=== PATIENT | female | born 1990 | race Caucasian/White ===

== ENCOUNTER 2016-06-10 10:22 | Emergency (ER) | payer MEDICAID ==
[2016-06-10] MEDS ORDERED: KETOROLAC 60 MG/2 ML VIAL IVP STA (11:44)
[2016-06-10] MEDS ORDERED: KETOROLAC 30 MG/ML VIAL ONE (11:48)
[2016-06-10] MEDS ORDERED: IOPAMIDOL-300 100 ML VIAL IVP ONE (14:19)
[2016-06-10] MEDS ORDERED: oxyCOD/ACETAMIN 5 MG/325 MG TABLET PO STA (14:26)
[2016-06-10] MEDS ORDERED: oxyCOD/ACETAMIN 5 MG/325 MG TABLET PO ONE (14:30)
== END 2016-06-10 15:04 | disposition home or self-care (01) ==
DX: R07.9 Chest pain, unspecified (principal); F17.200 Nicotine dependence, unspecified, uncomplicated; Z82.49 Family history of ischemic heart disease and other diseases of the circulatory system
CPT/HCPCS: 36415; 71020; 71275; 80053; 83690; 84484; 84703; 85025; 85379; 93005; 93010; 96374; 99283; 99284; A9270; Q9967

== ENCOUNTER 2016-07-12 15:23 | Emergency (ER) | payer MEDICAID ==
[2016-07-12] MEDS ORDERED: ONDANSETRON 4 MG/2 ML VIAL IVP STA (16:22)
[2016-07-12] MEDS ORDERED: SODIUM CHLORIDE 0.9% 1,000 ML IV ONE (16:22)
[2016-07-12] MEDS ORDERED: MECLIZINE 12.5 MG TABLET PO STA (16:23)
[2016-07-12] MEDS ORDERED: ONDANSETRON 4 MG/2 ML VIAL ONE (16:27)
[2016-07-12] MEDS ORDERED: MECLIZINE 12.5 MG TABLET PO ONE ×2 (16:27→16:37)
[2016-07-12] MEDS ORDERED: IBUPROFEN 800 MG TABLET PO ONE (16:37)
[2016-07-12] MEDS ORDERED: diphenhydrAMINE 25 MG CAPSULE PO STA (17:29)
[2016-07-12] MEDS ORDERED: PROCHLORPERAZINE 10 MG/2 ML VIAL IVP STA (17:30)
[2016-07-12] MEDS ORDERED: diphenhydrAMINE 25 MG CAPSULE PO ONE (17:46)
[2016-07-12] MEDS ORDERED: PROCHLORPERAZINE 10 MG/2 ML VIAL ONE (17:46)
== END 2016-07-12 18:22 | disposition home or self-care (01) ==
DX: R55 Syncope and collapse (principal); R42 Dizziness and giddiness; F17.200 Nicotine dependence, unspecified, uncomplicated
CPT/HCPCS: 36415; 70450; 80053; 81003; 83690; 85025; 93005; 93010; 96361; 96374; 96375; 99283; 99284; A9270

== ENCOUNTER 2016-08-16 21:04 | Emergency (ER) | payer MEDICAID ==
[2016-08-16] MEDS ORDERED: SODIUM CHLORIDE 0.9% 1,000 ML IV ONE (21:12)
== END 2016-08-16 23:04 | disposition home or self-care (01) ==
DX: F41.9 Anxiety disorder, unspecified (principal); R00.0 Tachycardia, unspecified; F17.200 Nicotine dependence, unspecified, uncomplicated

== ENCOUNTER 2016-08-22 14:45 | Outpatient (CLI) | payer MEDICAID | END 2016-08-22 15:00 | disposition home or self-care (01) | DX: R00.2 Palpitations (principal) ==

== ENCOUNTER 2016-09-01 17:10 | Emergency (ER) | payer MEDICAID ==
[2016-09-01] MEDS ORDERED: ASPIRIN CHEW 81 MG TABLET PO STA (17:52)
[2016-09-01] MEDS ORDERED: SODIUM CHLORIDE 0.9% 1,000 ML IV ONE (18:21)
[2016-09-01] MEDS ORDERED: IPRATROPIUM/ALBUTEROL 3 ML NEB INH STA (18:22)
[2016-09-01] MEDS ORDERED: IPRATROPIUM/ALBUTEROL 3 ML NEB INH ONE (18:26)
[2016-09-01] MEDS ORDERED: cefTRIAXone 1 GM in SODIUM CHLORIDE 0.9% MINIBAG 100 ML IV STA (18:44)
[2016-09-01] MEDS ORDERED: cefTRIAXone 1 GM VIAL ONE (18:50)
[2016-09-01] MEDS ORDERED: POTASSIUM BICARB 25 MEQ TABLET PO STA (18:56)
[2016-09-01] MEDS ORDERED: MAGNESIUM OXIDE 400 MG TABLET PO ONE ×2 (18:56→19:09)
[2016-09-01] MEDS ORDERED: POTASSIUM BICARB 25 MEQ TABLET PO ONE (19:09)
[2016-09-01] MEDS ORDERED: IOPAMIDOL-300 100 ML VIAL IVP ONE (19:20)
== END 2016-09-01 21:25 | disposition home or self-care (01) ==
DX: R07.89 Other chest pain (principal); R06.02 Shortness of breath; N30.00 Acute cystitis without hematuria; R00.0 Tachycardia, unspecified; R03.0 Elevated blood-pressure reading, without diagnosis of hypertension; E87.6 Hypokalemia; F17.200 Nicotine dependence, unspecified, uncomplicated; Z82.49 Family history of ischemic heart disease and other diseases of the circulatory system
CPT/HCPCS: 36415; 71020; 71275; 80053; 81001; 81025; 83690; 84484; 85025; 93005; 93010; 94640; 96361; 96365; 99284; A9270; J7620; Q9967

== ENCOUNTER 2016-11-13 09:15 | Emergency (ER) | payer MEDICAID ==
[2016-11-13 10:00] LABS: BILIRUBIN,URINE NEGATIVE (NEGATIVE)
[2016-11-13 10:08] LABS: HCG UR QUAL NEGATIVE; UA CHARGE (STRIP ONLY) YES; UR CULTURE IF IND NOT INDICATED
[2016-11-13 10:10] LABS: BASOPHILS # (AUTO) 0.1 10^3/uL (0.0-0.1); BASOPHILS % (AUTO) 0.7 %; EOSINOPHILS # (AUTO) 0.4 10^3/uL (0.0-0.7); HCT - HEMATOCRIT 42.1 % (37.0-47.0); HGB - HEMOGLOBIN 14.3 g/dL (12.0-16.0); LYMPHOCYTES # (AUTO) 2.6 10^3/uL (1.5-3.5); LYMPHOCYTES % (AUTO) 25.8 %; MEAN CORPUSCULAR HEMOGLOBIN 29.7 pg (27.0-31.0); MEAN CORPUSCULAR HGB CONC 33.9 g/dL (32.0-36.0); MEAN CORPUSCULAR VOLUME 87.6 fL (81.0-99.0); MEAN PLATELET VOLUME 8.2 fL (7.9-10.8); MONOCYTES # (AUTO) 0.6 10^3/uL (0.0-1.0); MONOCYTES % (AUTO) 5.6 %; NEUTROPHILS # (AUTO) 6.5 10^3/uL (1.5-6.6); NEUTROPHILS % (AUTO) 63.9 %; NUCLEATED RED BLOOD CELLS AUTO 0.1 /100WBC; RED BLOOD COUNT 4.81 10^6/uL (4.20-5.40); RED CELL DISTRIBUTION WIDTH 13.3 % (12.0-15.0); UNCORRECTED WHITE BLOOD COUNT 10.1 x10^3/uL; WHITE BLOOD COUNT 10.1 x10^3/uL (4.8-10.8)
[2016-11-13 10:21] LABS: ALBUMIN/GLOBULIN RATIO 1.3 (1.0-2.2); BILIRUBIN,TOTAL 0.5 mg/dL (0.2-1.0); CALCIUM 9.4 mg/dL (8.5-10.3); CREATININE 0.6 mg/dL (0.4-1.0); POTASSIUM 3.8 mmol/L (3.5-5.0); TOTAL PROTEIN 7.7 g/dL (6.7-8.2)
--- NOTE | 2016-11-13 10:26 | XRAY Preliminary Report ---
Exam: XR Chest 2 View PA/LAT IMPRESSION: Normal 2-view chest radiography. [facility] SITE ID: [id number]
--- NOTE | 2016-11-13 10:29 | XRAY Report ---
EXAM: CHEST RADIOGRAPHY EXAM DATE: 11/13/2016 10:11 AM. CLINICAL HISTORY: Syncope, palpitations. COMPARISON: 09/01/2016. TECHNIQUE: 2 views. FINDINGS: Lungs/Pleura: No focal opacities evident. No pleural effusion. No pneumothorax. Normal volumes. Mediastinum: Heart and mediastinal contours are unremarkable. Other: None. IMPRESSION: Normal 2-view chest radiography. [facility] Referring Provider Line: [phone] SITE ID: [id number]
--- NOTE | 2016-11-13 10:41 | ED Physician Documentation ---
PD HPI SYNCOPE - Stated complaint Stated Complaint: SYNCOPE/HEAD PX/VOMITING - Chief complaint Chief Complaint: Cardiac - History obtained from History obtained from: Patient - History of Present Illness Witnessed: Unwitnessed Timing - onset: Today Duration: Seconds Preceding symptoms: Palpitations, Light headed Associated symptoms: Palpitations, Diaphoresis Contributing factors: Other (jsut out of the shower) Injury occurred: Head injury. No: Neck injury, Bit tongue Similar symptoms before: Diagnosis (syncope) Recently seen: Not recently seen - Additional information Additional information: 25 y/o female with a history of tobacco abuse and prior syncopal episodes has had another episode of syncope after getting out of the shower. She notes nothing was different this morning from her usual and she felt the palpitations in her chest. She describes the palpitations as a missed beat with a thud following that and brief in nature. She is symptom free now. Review of Systems Constitutional: denies: Fever, Chills, Myalgias, Fatigue Eyes: denies: Decreased vision Ears: denies: Ear pain Nose: denies: Congestion Throat: denies: Sore throat Cardiac: reports: Chest pain / pressure, Palpitations. denies: Pedal edema, Calf pain Respiratory: denies: Dyspnea, Cough GI: reports: Nausea. 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 : None HEENT: Chronic vision loss Psych: None Musculoskeletal: None Derm: None - Past Surgical History Past Surgical History: Yes General: Other - Allergies Allergies/Adverse Reactions: Allergies Allergy/AdvReac Type Severity Reaction Status Date / Time chlorhexidine Allergy Hives Verified 11/13/16 09:22 - Social History Does the pt smoke?: Yes Smoking Status: Current every day smoker Does the pt drink ETOH?: Yes Does the pt have substance abuse?: No - Immunizations Immunizations are current?: Yes - POLST Patient has POLST: No PD ED PE NORMAL - Vitals Vital signs reviewed: Yes (hypertensive) - General General: Alert and oriented X 3, No acute distress, Well developed/nourished - HEENT HEENT: Atraumatic, PERRL, EOMI, Ears normal, Moist mucous membranes, Pharynx benign, Dentition benign - Neck Neck: Supple, no meningeal sign, No bony TTP - Cardiac Cardiac: RRR, No murmur - Respiratory Respiratory: No respiratory distress, Clear bilaterally - Abdomen Abdomen: Soft, Non tender - Back Back: No CVA TTP, No spinal TTP - Derm Derm: Normal color, No rash - Extremities Extremities: No deformity, No edema - Neuro Neuro: Alert and oriented X 3, deck specialist 2-12 intact, No motor deficit, No sensory deficit, Normal speech - Psych Psych: Normal mood, Normal affect Results - Vitals Vitals: Vital Signs - 24 hr 11/13/16 11/13/16 11/13/16 09:20 11:31 12:45 Temperature 37.1 C 36.7 C Heart Rate 100 80 79 Respiratory 18 20 17 Rate Blood Pressure 132/73 H 107/57 L 108/49 L O2 Saturation 100 97 100 11/13/16 12:48 Temperature 36.5 C Heart Rate 72 Respiratory 22 Rate Blood Pressure 115/75 O2 Saturation 100 Oxygen O2 Source Room air - EKG (time done) 0926 Rate: Rate (enter#) (88) Rhythm: NSR Compare to prior EKG: Changed from prior EKG (SPT 09-01-16 rate has decreased) Computer interpretation: Agree with computer - Labs Labs: Laboratory Tests 11/13/16 11/13/16 11/13/16 09:38 09:38 09:38 WBC 10.1 RBC 4.81 Hgb 14.3 Hct 42.1 MCV 87.6 MCH 29.7 MCHC 33.9 RDW 13.3 Plt Count 357 MPV 8.2 Neut # 6.5 Lymph # 2.6 [place] # 0.6 Eos # 0.4 Baso # 0.1 Absolute Nucleated RBC 0.01 Nucleated RBCs 0.1 D-Dimer Sodium 137 Potassium 3.8 Chloride 101 Carbon Dioxide 28 Anion Gap 8.0 BUN 12 Creatinine 0.6 Estimated GFR (MDRD) 121 Glucose 89 Calcium 9.4 Total Bilirubin 0.5 AST 15 ALT 16 Alkaline Phosphatase 83 Troponin I < 0.04 Total Protein 7.7 Albumin 4.3 Globulin 3.4 Albumin/Globulin Ratio 1.3 Lipase 27 TSH Urine Color Urine Clarity Urine pH Ur Specific [place] Urine Protein Urine Glucose (UA) Urine Ketones Urine Occult Blood Urine Nitrite Urine Bilirubin Urine Urobilinogen Ur Leukocyte Esterase Ur Microscopic Review Urine Culture Comments Urine HCG, Qual 11/13/16 11/13/16 11/13/16 09:38 09:38 09:47 WBC RBC Hgb Hct MCV MCH MCHC RDW Plt Count MPV Neut # Lymph # [place] # Eos # Baso # Absolute Nucleated RBC Nucleated RBCs D-Dimer < 200.0 L Sodium Potassium Chloride Carbon Dioxide Anion Gap BUN Creatinine Estimated GFR (MDRD) Glucose Calcium Total Bilirubin AST ALT Alkaline Phosphatase Troponin I Total Protein Albumin Globulin Albumin/Globulin Ratio Lipase TSH 0.86 Urine Color YELLOW Urine Clarity CLEAR Urine pH 7.0 Ur Specific [place] 1.020 Urine Protein NEGATIVE Urine Glucose (UA) NEGATIVE Urine Ketones NEGATIVE Urine Occult Blood TRACE-INTA Urine Nitrite NEGATIVE Urine Bilirubin NEGATIVE Urine Urobilinogen 0.2 (NORMAL) Ur Leukocyte Esterase NEGATIVE Ur Microscopic Review NOT INDICATED Urine Culture Comments NOT INDICATED Urine HCG, Qual 11/13/16 09:47 WBC RBC Hgb Hct MCV MCH MCHC RDW Plt Count MPV Neut # Lymph # [place] # Eos # Baso # Absolute Nucleated RBC Nucleated RBCs D-Dimer Sodium Potassium Chloride Carbon Dioxide Anion Gap BUN Creatinine Estimated GFR (MDRD) Glucose Calcium Total Bilirubin AST ALT Alkaline Phosphatase Troponin I Total Protein Albumin Globulin Albumin/Globulin Ratio Lipase TSH Urine Color Urine Clarity Urine pH Ur Specific [place] 1.020 Urine Protein Urine Glucose (UA) Urine Ketones Urine Occult Blood Urine Nitrite Urine Bilirubin Urine Urobilinogen Ur Leukocyte Esterase Ur Microscopic Review Urine Culture Comments Urine HCG, Qual NEGATIVE - Rads (name of study) 2 view chest Radiology: Prelim report reviewed (Impression: Normal two-view chest radiography.), EMP read indepedently, See rad report PD MEDICAL DECISION MAKING - ED course Complexity details: reviewed old records, reviewed results, re-evaluated patient , considered differential, d/w patient ED course: 25 y/o female with another syncopal episode without explanation. She has "palpitations" associated with this and no findings on monitoring or in work up today. Her IVC was checked and she appeared euvolemic. 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 Departure - Departure Disposition: 01 Home, Self Care Clinical Impression: Syncope Qualifiers: Syncope type: unspecified Qualified Code(s): R55 - Syncope and collapse Condition: Stable Instructions: ED Fainting Unkn Cause Follow-Up: [facility] - Card [Provider Group] Comments: Today we did not find a reason for your fainting episode. It is imperative that you follow up with your lime sludge kiln operator for monitoring. Today in the Emergency Department your blood pressure was elevated. This can happen from the stress of the visit itself, from a current illness or circumstance or from uncontrolled hypertension. If you take blood pressure medications take your usual mediations, have your blood pressure re-checked in an appropriate setting and follow up any elevation with your primary care doctor. Forms: Activity restrictions Discharge Date/Time: 11/13/16 12:48
[2016-11-13 12:53] VITALS: BP 115/75
== END 2016-11-13 12:48 | disposition home or self-care (01) ==
LOC: ED 09:15
DX: R55 Syncope and collapse (principal); R25.1 Tremor, unspecified; J45.909 Unspecified asthma, uncomplicated; F17.200 Nicotine dependence, unspecified, uncomplicated
CPT/HCPCS: 36415; 71020; 80053; 81001; 81003; 81025; 83690; 84443; 84484; 85025; 85379; 87086; 93005; 93010; 99283; 99284

== ENCOUNTER 2017-03-11 14:24 | Emergency (ER) | payer MEDICAID ==
[2017-03-11 14:48] VITALS: BP 129/81
--- NOTE | 2017-03-11 15:39 | XRAY Preliminary Report ---
Exam: XR Chest 2 View PA/LAT IMPRESSION: Normal 2-view chest radiography. [facility] SITE ID: [id number]
--- NOTE | 2017-03-11 15:46 | XRAY Report ---
EXAM: CHEST RADIOGRAPHY EXAM DATE: 03/11/2017 03:11 PM. CLINICAL HISTORY: Current smoker. Nonproductive cough for 2 weeks. COMPARISON: 11/13/2016. TECHNIQUE: 2 views. FINDINGS: Lungs/Pleura: No focal opacities evident. No pleural effusion. No pneumothorax. Normal volumes. Mediastinum: Heart and mediastinal contours are unremarkable. Other: None. IMPRESSION: Normal 2-view chest radiography. [facility] Referring Provider Line: [phone] SITE ID: [id number]
--- NOTE | 2017-03-11 16:02 | ED Physician Documentation ---
PD HPI URI - Stated complaint Stated Complaint: SOA - Chief complaint Chief Complaint: Resp - History obtained from History obtained from: Patient - History of Present Illness Timing - onset: How many weeks ago (2) Timing duration: Weeks (2) Timing details: Gradual onset, Still present Associated symptoms: Productive cough, Chest pain (with coughing), Dyspnea. No : Fever Contributing factors: COPD / asthma. No: Sick contact, Travel, Immunocompromised Improves by: MDI/nebulizer Worsened by: Activity Similar symptoms before: Diagnosis (bronchtitis and asthma, has had pneumonia in the past) Recently seen: Not recently seen Review of Systems Constitutional: reports: Chills, Myalgias. denies: Fever Nose: reports: Congestion Throat: denies: Sore throat Cardiac: reports: Chest pain / pressure (with cough). denies: Palpitations Respiratory: reports: Dyspnea, Cough, Wheezing GI: reports: Diarrhea. 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 : None HEENT: Chronic vision loss Psych: None Musculoskeletal: None Derm: None - Past Surgical History Past Surgical History: Yes General: Other - Present Medications Home Medications: Ambulatory Orders Medication Instructions Recorded Confirmed Albuterol Sulf [Ventolin Hfa 1 - 2 puffs INH Q4HR PRN #1 inhaler 03/11/17 Inhaler] Benzonatate [Tessalon] 100 mg PO TID PRN #25 capsule 03/11/17 Dexamethasone [Decadron] 4 mg PO DAILY #5 tablet 03/11/17 Doxycycline Hyclate 100 mg PO BID #14 tablet 03/11/17 guaiFENesin/CODEINE [Robitussin AC] 10 ml PO Q6H PRN #240 ml 03/11/17 - Allergies Allergies/Adverse Reactions: Allergies Allergy/AdvReac Type Severity Reaction Status Date / Time chlorhexidine Allergy Hives Verified 11/13/16 09:22 - Social History Does the pt smoke?: Yes Smoking Status: Current every day smoker Does the pt drink ETOH?: Yes Does the pt have substance abuse?: No - Immunizations Immunizations are current?: Yes - POLST Patient has POLST: No PD ED PE NORMAL - Vitals Vital signs reviewed: Yes - General General: Alert and oriented X 3, Well developed/nourished, Other (appears uncomfortable and hurting with cough. Has harsh, loud cough repetitively. ) - HEENT HEENT: Ears normal, Pharynx benign - Neck Neck: Supple, no meningeal sign, No adenopathy - Cardiac Cardiac: RRR, No murmur - Respiratory Respiratory: Clear bilaterally - Abdomen Abdomen: Soft, Non tender - Derm Derm: Normal color, Warm and dry, No rash - Extremities Extremities: No edema, No calf tenderness / cord Results - Vitals Vitals: Oxygen O2 Source Room air - Rads (name of study) chest Radiology: Prelim report reviewed, EMP read contemporaneously (no pneumonia nor PTX) PD MEDICAL DECISION MAKING - ED course Complexity details: reviewed results, considered differential (prolonged cough and now productive with harsh sound and hurting chest with cough. ), d/w patient Departure - Departure Disposition: 01 Home, Self Care Clinical Impression: Upper respiratory infection Qualifiers: URI type: unspecified URI Qualified Code(s): J06.9 - Acute upper respiratory infection, unspecified Condition: Stable Record reviewed to determine appropriate education?: Yes Instructions: ED Upper Resp Infec Abx Tx Prescriptions: Albuterol Sulf [Ventolin Hfa Inhaler] 1 - 2 puffs INH Q4HR PRN #1 inhaler PRN Reason: Shortness Of Air/Wheezing Benzonatate [Tessalon] 100 mg PO TID PRN #25 capsule PRN Reason: Cough Dexamethasone [Decadron] 4 mg PO DAILY #5 tablet Doxycycline Hyclate 100 mg PO BID #14 tablet guaiFENesin/CODEINE [Robitussin AC] 10 ml PO Q6H PRN #240 ml PRN Reason: Cough Comments: Drink lots of fluids. Use the albuterol inhaler 2 puffs 4 times a day for 7-10 days. Decadron steroid for inflammation daily for 5 more days. Cough medicine as needed. Use Tessalon as needed for cough as well. This may still be viral and irritated but given the duration of it and her symptoms, there is concern for bacterial and so we will add doxycycline twice a day for a week. Recheck if not improving over the next 3-5 days. Discharge Date/Time: 03/11/17 17:06
[2017-03-11] MEDS ORDERED: BENZONATATE 100 MG CAPSULE PO STA (16:24)
[2017-03-11] MEDS ORDERED: ALBUTEROL NEB 2.5 MG/3 ML INH STA (16:24)
[2017-03-11] MEDS ORDERED: DEXAMETHASONE 10 MG/ML VIAL PO STA (16:24)
[2017-03-11] MEDS ORDERED: guaiFENesin/CODEINE 5 ML UDC PO STA (16:24)
[2017-03-11] MEDS ORDERED: ALBUTEROL NEB 2.5 MG/3 ML INH ONE (16:41)
[2017-03-11] MEDS ORDERED: guaiFENesin/CODEINE 5 ML UDC ONE ×2 (16:50→22:10)
[2017-03-11] MEDS ORDERED: DEXAMETHASONE 10 MG/ML VIAL ONE (16:50)
[2017-03-11] MEDS ORDERED: BENZONATATE 100 MG CAPSULE PO ONE (16:50)
[2017-03-11] MEDS ORDERED: CHERRY SYRUP 10 ML UDC PO ONE (16:50)
[2017-03-11] MEDS ORDERED: ONDANSETRON 4 MG/2 ML VIAL ONE (22:10)
== END 2017-03-11 17:06 | disposition home or self-care (01) ==
LOC: ED 14:24
DX: J06.9 Acute upper respiratory infection, unspecified (principal); J45.909 Unspecified asthma, uncomplicated; F17.200 Nicotine dependence, unspecified, uncomplicated
CPT/HCPCS: 71020; 99283; A9270; J7613

== ENCOUNTER 2017-08-29 16:00 | Outpatient (CLI) | payer MEDICAID | END 2017-08-29 16:01 | disposition home or self-care (01) | LOC: LAB.R 16:00 | PROVIDERS: ATTEND Obstetrics & Gynecology | DX: R10.2 Pelvic and perineal pain (principal); Z11.3 Encounter for screening for infections with a predominantly sexual mode of transmission | CPT/HCPCS: 87491; 87591 ==

== ENCOUNTER 2017-09-03 11:51 | Outpatient (CLI) | payer MEDICAID ==
[2017-09-03 12:03] LABS: BASOPHILS # (AUTO) 0.1 10^3/uL (0.0-0.1); BASOPHILS % (AUTO) 0.9 %; EOSINOPHILS # (AUTO) 0.6 10^3/uL (0.0-0.7); EOSINOPHILS % (AUTO) 4.4 %; HGB - HEMOGLOBIN 13.6 g/dL (12.0-16.0); LYMPHOCYTES # (AUTO) 3.3 10^3/uL (1.5-3.5); LYMPHOCYTES % (AUTO) 24.4 %; MEAN CORPUSCULAR HEMOGLOBIN 30.9 pg (27.0-31.0); MEAN CORPUSCULAR HGB CONC 34.9 g/dL (32.0-36.0); MEAN CORPUSCULAR VOLUME 88.5 fL (81.0-99.0); MEAN PLATELET VOLUME 7.9 fL (7.9-10.8); MONOCYTES # (AUTO) 0.8 10^3/uL (0.0-1.0); NEUTROPHILS # (AUTO) 8.7 10^3/uL (1.5-6.6); NEUTROPHILS % (AUTO) 64.3 %; PLT - PLATELET COUNT 325 10^3/uL (130-450); RED BLOOD COUNT 4.41 10^6/uL (4.20-5.40); RED CELL DISTRIBUTION WIDTH 13.3 % (12.0-15.0); WHITE BLOOD COUNT 13.5 x10^3/uL (4.8-10.8)
[2017-09-03 12:36] LABS: HB2 TOTAL 14.6 g/dL; HEMOGLOBIN A1C 0.46 g/dL
== END 2017-09-03 11:52 | disposition home or self-care (01) ==
LOC: LAB 11:51
PROVIDERS: ATTEND Obstetrics & Gynecology
DX: R10.2 Pelvic and perineal pain (principal); E66.9 Obesity, unspecified
CPT/HCPCS: 36415; 83036; 85025; 85651

== ENCOUNTER 2017-09-09 20:01 | Outpatient (CLI) | payer MEDICAID ==
--- NOTE | 2017-09-10 09:18 | Ultrasound Report ---
PELVIC ULTRASOUND: 09/09/2017 HISTORY: Last menstrual period 08/30/2017. COMPARISON: Pelvic ultrasound 09/07/2015. TECHNIQUE: Transabdominal pelvic ultrasound performed for global evaluation. Real-time scanning performed and static images obtained. FINDINGS: UTERUS: Normal echotexture, anteverted configuration, 8.5 x 3.8 x 5 cm, volume 85 mL. Endometrial echo thickness 6 mm. IUD normally positioned within the endometrial canal. RIGHT OVARY: 2.3 x 2.3 x 2.9 cm, volume 7.9 mL. Normal echotexture and blood flow. LEFT OVARY: 2.3 x 2 x 2.3 cm, volume 5.5 mL. A 2.5 x 1.7 x 1.9 cm cystic structure adjacent to the left ovary, question paraovarian cyst. Otherwise normal left ovary echotexture and blood flow. FREE FLUID: None. IMPRESSION: 1. NORMAL ENDOMETRIAL ECHO THICKNESS WITH NORMALLY POSITIONED IUD. 2. SMALL LEFT PARAOVARIAN CYST. 3. OTHERWISE NEGATIVE. TD: 09/10/2017 09:17 [email or web address]
== END 2017-09-09 20:02 | disposition home or self-care (01) ==
LOC: DI 20:01
PROVIDERS: ATTEND Obstetrics & Gynecology
DX: R10.2 Pelvic and perineal pain (principal); N94.89 Other specified conditions associated with female genital organs and menstrual cycle; Z97.5 Presence of (intrauterine) contraceptive device
CPT/HCPCS: 76830; 76856

== ENCOUNTER 2017-09-24 08:00 | Outpatient (CLI) | payer MEDICAID ==
[2017-09-24 15:56] LABS: BILIRUBIN,URINE NEGATIVE (NEGATIVE); GLUCOSE, URINE (UA) NEGATIVE (NEGATIVE); KETONES,URINE (UA) NEGATIVE (NEGATIVE); LEUKOCYTE ESTERASE, URINE NEGATIVE (NEGATIVE); NITRITE,URINE NEGATIVE (NEGATIVE); OCCULT BLOOD,URINE NEGATIVE (NEGATIVE); PH,URINE 6.5 PH (5.0-7.5); PROTEIN,URINE NEGATIVE (NEGATIVE); UROBILINOGEN,URINE 0.2 (NORMAL) E.U./dL (NORMAL)
[2017-09-24 16:11] LABS: BACTERIA,URINE None Seen /HPF (None Seen); CLARITY,URINE CLEAR (CLEAR); RBC,URINE None Seen /HPF (0-5); SQUAMOUS EPITHELIAL CELL,UR FEW Squamous (<= Few)
== END 2017-09-24 08:01 ==
LOC: LAB.R 08:00
PROVIDERS: ATTEND Obstetrics & Gynecology
DX: R35.0 Frequency of micturition (principal)
CPT/HCPCS: 81001

== ENCOUNTER 2017-09-25 13:57 | Outpatient (CLI) | payer MEDICAID ==
--- NOTE | 2017-09-25 14:52 | Ultrasound Report ---
LEFT BREAST ULTRASOUND: 09/25/2017 CLINICAL INDICATION: 1 cm palpable abnormality lateral left breast on clinical exam. TECHNIQUE: Real-time scanning was performed with airline security representative static images obtained. FINDINGS: Ultrasound of the outer left breast was performed, directed to the region indicated on the requisition. Unremarkable parenchymal lobules are seen. No discrete solid or cystic mass is identified. No sonographically suspicious findings are seen. IMPRESSION: NEGATIVE EXAMINATION. RECOMMENDATION: Continued clinical surveillance. Routine annual screening, to commence at age 40, unless otherwise clinically indicated. BIRADS CATEGORY 1-NEGATIVE. TD: 09/25/2017 14:52
== END 2017-09-25 13:58 | disposition home or self-care (01) ==
LOC: DI 13:57
PROVIDERS: ATTEND Obstetrics & Gynecology
DX: N60.92 Unspecified benign mammary dysplasia of left breast (principal)
CPT/HCPCS: 76642

== ENCOUNTER 2017-10-09 18:12 | Outpatient (CLI) | payer MEDICAID ==
[~2017-10-09 18:12] MED LIST: IOPAMIDOL-300 100 ML VIAL ONE; IOPAMIDOL-300 50 ML VIAL ONE
[2017-10-09] MEDS ORDERED: IOPAMIDOL-300 100 ML VIAL ONE (18:24)
[2017-10-09] MEDS ORDERED: IOPAMIDOL-300 50 ML VIAL ONE (18:24)
--- NOTE | 2017-10-10 09:43 | CT Report ---
CT ABDOMEN AND PELVIS WITH CONTRAST: 10/09/2017 CLINICAL INDICATION: Left groin pain. TECHNIQUE: Axial CT images of the abdomen and pelvis were obtained with 100 mL Isovue 300 intravenously as well as oral contrast. COMPARISON: 02/05/2016. FINDINGS: Limited evaluation of the lung bases is unremarkable. ABDOMEN: The liver, spleen, pancreas, kidneys and adrenal glands are unremarkable. The gallbladder is not dilated. No bowel dilatation, free gas, or free fluid is present. No abdominal adenopathy is seen. PELVIS: The appendix is seen in the right lower quadrant, and is normal in caliber. An IUD is noted in the uterus. Incidental ovarian follicles are noted. No pelvic adenopathy or free fluid is present. No inguinal adenopathy is seen. Osseous structures are unremarkable. IMPRESSION: NORMAL CT OF THE ABDOMEN AND PELVIS. IUD IN PLACE. NO EVIDENT ETIOLOGY FOR PATIENT'S LEFT GROIN PAIN. CT DOSE REDUCTION STATEMENT In accordance with CT protocol optimization, one or more of the following dose reduction techniques were utilized for this exam: automated exposure control, adjustment of mA and/or KV based on patient size, or use of iterative reconstructive technique. TD: 10/10/2017 09:43
== END 2017-10-09 18:13 | disposition home or self-care (01) ==
LOC: DI 18:12
PROVIDERS: ATTEND Internal Medicine Gastroenterology
DX: R10.32 Left lower quadrant pain (principal); Z97.5 Presence of (intrauterine) contraceptive device
CPT/HCPCS: 74177; Q9967

== ENCOUNTER 2018-08-08 15:44 | Outpatient (CLI) | payer MEDICAID ==
--- NOTE | 2018-08-10 00:01 | XRAY Report ---
Reason: THUMB PAIN, LEFT Procedure Date: 08/08/2018 Accession Number: [id number] / [id number] Procedure: XR - Hand 3 View LT CPT Code: FULL RESULT: EXAM: LEFT HAND RADIOGRAPHY EXAM DATE: 08/08/2018 04:25 PM. CLINICAL HISTORY: THUMB PAIN, LEFT. COMPARISON: WRIST 3 VIEW LT 10/01/2014 11:09 AM. TECHNIQUE: 3 views. FINDINGS: Bones: No acute fractures or suspicious bone lesions. Joints: No subluxations. Soft Tissues: Unremarkable. IMPRESSION: No acute radiographic abnormalities. [facility]
== END 2018-08-08 15:45 | disposition home or self-care (01) ==
LOC: DI 15:44
PROVIDERS: ATTEND Family Medicine
DX: M79.645 Pain in left finger(s) (principal)

== ENCOUNTER 2019-04-10 15:15 | Outpatient (CLI) | payer MEDICAID | END 2019-04-10 15:16 | disposition short-term general hospital (02) | LOC: EMS 15:15 | PROVIDERS: ATTEND Surgery | DX: M54.9 Dorsalgia, unspecified (principal); V43.53XA Car driver injured in collision with pick-up truck in traffic accident, initial encounter; Y92.413 State road as the place of occurrence of the external cause ==

== ENCOUNTER 2019-08-20 10:40 | Emergency (ER) | payer MEDICAID ==
[2019-08-20] MEDS ORDERED: ALBUTEROL NEB 2.5 MG/3 ML INH STA ×2 (11:00→11:01)
[2019-08-20] MEDS ORDERED: BENZONATATE 100 MG CAPSULE PO STA (11:01)
[2019-08-20] MEDS ORDERED: guaiFENesin/CODEINE 5 ML UDC PO STA (11:01)
--- NOTE | 2019-08-20 11:40 | ED Physician Documentation ---
PD HPI URI - Stated complaint Stated Complaint: COUGH,FEVER - Chief complaint Chief Complaint: Resp - History obtained from History obtained from: Patient (Productive cough for 2 weeks, fever at the outset then went away and then has recurred over the last few days. Mostly a sebastian-colored sputum but a little bit of hemoptysis over the last day or so. She is short of breath. She is a smoker. 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 HEENT: Chronic vision loss Psych: None Musculoskeletal: None Derm: None - Past Surgical History Past Surgical History: Yes General: Other - Present Medications Home Medications: Ambulatory Orders Medication Instructions Recorded Confirmed Albuterol Sulf [Ventolin Hfa 1 - 2 puffs INH Q4HR PRN #1 inhaler 03/11/17 Inhaler] Benzonatate [Tessalon] 100 mg PO TID PRN #25 capsule 03/11/17 Doxycycline Hyclate 100 mg PO BID #14 tablet 03/11/17 dexAMETHasone [Decadron] 4 mg PO DAILY #5 tablet 03/11/17 guaiFENesin/CODEINE [Robitussin AC] 10 ml PO Q6H PRN #240 ml 03/11/17 Azithromycin [Zithromax] 1 tab PO DAILY #6 tablet 08/20/19 Benzonatate [Tessalon [place]] 100 - 200 mg PO TID PRN #30 capsule 08/20/19 guaiFENesin/CODEINE [Robitussin AC] 5 - 10 ml PO Q6H PRN #120 ml 08/20/19 - Allergies Allergies/Adverse Reactions: Allergies Allergy/AdvReac Type Severity Reaction Status Date / Time chlorhexidine Allergy Hives Verified 08/20/19 10:50 - Social History Does the pt smoke?: Yes Smoking Status: Current every day smoker Does the pt drink ETOH?: Yes Does the pt have substance abuse?: No - Immunizations Immunizations are current?: Yes - POLST Patient has POLST: No PD ED PE NORMAL - Vitals Vital signs reviewed: Yes - General General: Alert and oriented X 3, No acute distress, Other (Frequent bronchitic coughing) - HEENT HEENT: PERRL, EOMI - Neck Neck: Supple, no meningeal sign, No bony TTP - Cardiac Cardiac: RRR, No murmur - Respiratory Respiratory: No respiratory distress, Other (Diminished throughout without focal findings) - Abdomen Abdomen: Non tender - Back Back: No spinal TTP - Derm Derm: No rash - Extremities Extremities: No edema, No calf tenderness / cord - Neuro Neuro: Alert and oriented X 3, Normal speech Results - Vitals Vitals: Vital Signs - 24 hr 08/20/19 08/20/19 08/20/19 10:46 11:19 11:46 Temperature 36 C L 36 C L Heart Rate 104 H 104 H 98 Respiratory 20 22 16 Rate Blood Pressure 128/85 H 120/78 O2 Saturation 99 99 Oxygen O2 Source Room air - Rads (name of study) 2v chest Radiology: EMP read contemporaneously (normal) PD MEDICAL DECISION MAKING - ED course ED course: 28-year-old heavy smoker, potentially with some underlying COPD presents with bronchitis in the area of COVID 19. She is febrile and has a productive cough so testing is indicated and sent. Chest x-ray is clear. Given her underlying smoking and long time course as well as biphasic illness I am giving her antibiotics. Departure - Departure Disposition: 01 Home, Self Care Clinical Impression: Bronchitis Condition: Good Record reviewed to determine appropriate education?: Yes Instructions: ED Bronchitis Asthmatic Prescriptions: Azithromycin [Zithromax] 1 tab PO DAILY #6 tablet Benzonatate [Tessalon [place]] 100 - 200 mg PO TID PRN #30 capsule PRN Reason: Cough guaiFENesin/CODEINE [Robitussin AC] 5 - 10 ml PO Q6H PRN #120 ml PRN Reason: Cough Comments: COVID 19 testing is being processed, obviously will get a call if it is positive but you need to maintain on home quarantine until not sick and fever free for 24 hours without fever medicine. Return for new or worsening symptoms. Follow-up with your doctor on Saturday for recheck.
--- NOTE | 2019-08-20 11:58 | XRAY Report ---
Reason: cough Procedure Date: 08/20/2019 Accession Number: [id number] / [id number] Procedure: XR - Chest 2 View X-Ray CPT Code: 66324 Final Report FULL RESULT: EXAM: CHEST RADIOGRAPHY EXAM DATE: 08/20/2019 11:45 AM. CLINICAL HISTORY: Cough and fever for 2 weeks. COMPARISON: CHEST 2 VIEW PA/LAT 11/13/2016 9:59 AM. TECHNIQUE: 2 views. FINDINGS: Lungs/Pleura: No focal opacities evident. No pleural effusion. No pneumothorax. Normal volumes. Mediastinum: Heart and mediastinal contours are unremarkable. Other: None. IMPRESSION: Normal 2-view chest radiography. [facility]
[2019-08-20 19:26] VITALS: BP 132/75
== END 2019-08-20 12:44 | disposition home or self-care (01) ==
LOC: ED 10:40
DX: J40 Bronchitis, not specified as acute or chronic (principal); F17.200 Nicotine dependence, unspecified, uncomplicated
CPT/HCPCS: 71046; 81599; 94640; 94664; 99284; A9270

== ENCOUNTER 2019-10-03 15:57 | Emergency (ER) | payer MEDICAID ==
[2019-10-03 16:43] LABS: BASOPHILS # (AUTO) 0.1 10^3/uL (0.0-0.1); BASOPHILS % (AUTO) 0.6 %; EOSINOPHILS # (AUTO) 0.6 10^3/uL (0.0-0.7); EOSINOPHILS % (AUTO) 5.5 %; HGB - HEMOGLOBIN 13.2 g/dL (12.0-16.0); LYMPHOCYTES # (AUTO) 2.9 10^3/uL (1.5-3.5); LYMPHOCYTES % (AUTO) 25.2 %; MEAN CORPUSCULAR HEMOGLOBIN 29.9 pg (27.0-31.0); MEAN CORPUSCULAR HGB CONC 33.4 g/dL (32.0-36.0); MEAN CORPUSCULAR VOLUME 89.6 fL (81.0-99.0); MEAN PLATELET VOLUME 9.4 fL (7.9-10.8); MONOCYTES # (AUTO) 0.6 10^3/uL (0.0-1.0); NEUTROPHILS # (AUTO) 7.2 10^3/uL (1.5-6.6); NEUTROPHILS % (AUTO) 63.3 %; PLT - PLATELET COUNT 376 10^3/uL (130-450); RED BLOOD COUNT 4.41 10^6/uL (4.20-5.40); RED CELL DISTRIBUTION WIDTH 12.8 % (12.0-15.0); WHITE BLOOD COUNT 11.4 x10^3/uL (4.8-10.8)
--- NOTE | 2019-10-03 16:45 | ED Physician Documentation ---
PD HPI CHEST PAIN - Stated complaint Stated Complaint: LT SIDE NECK/ARM/LEG TIGHTNESS - Chief complaint Chief Complaint: Cardiac - History obtained from History obtained from: Patient (About 4 to 5 days ago she developed some tightness and dull pain in her left leg. About 2 days ago she developed the same pain in the left arm and on the left side of the neck. It feels better if pressure is placed on it. She denies chest pain or trouble breathing. She is never had this before. Pain is not debilitating just concerning to her.) Review of Systems Constitutional: reports: Reviewed and negative Nose: reports: Reviewed and negative Cardiac: denies: Chest pain / pressure, Palpitations Respiratory: denies: Dyspnea PD PAST MEDICAL HISTORY - Past Medical History Cardiovascular: None Respiratory: Asthma Endocrine/Autoimmune: None GI: Other CONSOLIDATOR: None : None HEENT: Chronic vision loss Psych: None Musculoskeletal: None Derm: None - Past Surgical History Past Surgical History: Yes General: Other - Present Medications Home Medications: Ambulatory Orders Medication Instructions Recorded Confirmed Albuterol Sulf [Ventolin Hfa 1 - 2 puffs INH Q4HR PRN #1 inhaler 03/11/17 Inhaler] Benzonatate [Tessalon] 100 mg PO TID PRN #25 capsule 03/11/17 Doxycycline Hyclate 100 mg PO BID #14 tablet 03/11/17 dexAMETHasone [Decadron] 4 mg PO DAILY #5 tablet 03/11/17 guaiFENesin/CODEINE [Robitussin AC] 10 ml PO Q6H PRN #240 ml 03/11/17 Azithromycin [Zithromax] 1 tab PO DAILY #6 tablet 08/20/19 Benzonatate [Tessalon Perle] 100 - 200 mg PO TID PRN #30 capsule 08/20/19 guaiFENesin/CODEINE [Robitussin AC] 5 - 10 ml PO Q6H PRN #120 ml 08/20/19 - Allergies Allergies/Adverse Reactions: Allergies Allergy/AdvReac Type Severity Reaction Status Date / Time chlorhexidine Allergy Hives Verified 08/20/19 10:50 - Social History Does the pt smoke?: Yes Smoking Status: Current every day smoker Does the pt drink ETOH?: Yes Does the pt have substance abuse?: No - Immunizations Immunizations are current?: Yes - POLST Patient has POLST: No PD ED PE NORMAL - Vitals Vital signs reviewed: Yes - General General: Alert and oriented X 3, No acute distress - HEENT HEENT: PERRL, EOMI - Neck Neck: Supple, no meningeal sign, No bony TTP, Other (Mild muscular tenderness of the left sternocleidomastoid, full range of motion of the left shoulder, no back tenderness.) - Cardiac Cardiac: RRR, No murmur - Respiratory Respiratory: No respiratory distress, Clear bilaterally - Abdomen Abdomen: Non tender - Extremities Extremities: Other (Left leg is nontender, symmetric with the right. Full range of motion at all major joints. No redness.) - Neuro Neuro: Alert and oriented X 3, Normal speech Results - Vitals Vitals: Vital Signs - 24 hr 10/03/19 10/03/19 16:04 16:09 Temperature 36 C L Heart Rate 108 H 108 H Respiratory 18 18 Rate Blood Pressure 133/65 H 133/65 H O2 Saturation 99 99 Oxygen O2 Source Room air - EKG (time done) 1618 Rate: Rate (enter#) (104) Rhythm: Sinus tachycardia [place]: Normal Intervals: Normal ID QRS: Normal Ischemia: Normal ST segments Computer interpretation: Agree with computer - Labs Labs: Laboratory Tests 10/03/19 10/03/19 10/03/19 16:18 16:40 16:40 WBC 11.4 H RBC 4.41 Hgb 13.2 Hct 39.5 MCV 89.6 MCH 29.9 MCHC 33.4 RDW 12.8 Plt Count 376 MPV 9.4 Neut # (Auto) 7.2 H Lymph # (Auto) 2.9 [place] # (Auto) 0.6 Eos # (Auto) 0.6 Baso # (Auto) 0.1 Absolute Nucleated RBC 0.00 Nucleated RBC % 0.0 D-Dimer 218.1 Sodium 138 Potassium 3.5 Chloride 103 Carbon Dioxide 24 Anion Gap 11.0 BUN 13 Creatinine 0.7 Estimated GFR (MDRD) 99 Glucose 103 H Calcium 8.4 L Total Bilirubin 0.4 AST 15 ALT 13 Alkaline Phosphatase 70 Troponin I High Sens Total Protein 6.8 Albumin 3.8 Globulin 3.0 Albumin/Globulin Ratio 1.3 Lipase 31 Urine Color Urine Clarity Urine pH Ur Specific [place] Urine Protein Urine Glucose (UA) Urine Ketones Urine Occult Blood Urine Nitrite Urine Bilirubin Urine Urobilinogen Ur Leukocyte Esterase Ur Microscopic Review Urine Culture Comments Urine HCG, Qual 10/03/19 10/03/19 10/03/19 16:40 17:39 17:39 WBC RBC Hgb Hct MCV MCH MCHC RDW Plt Count MPV Neut # (Auto) Lymph # (Auto) [place] # (Auto) Eos # (Auto) Baso # (Auto) Absolute Nucleated RBC Nucleated RBC % D-Dimer Sodium Potassium Chloride Carbon Dioxide Anion Gap BUN Creatinine Estimated GFR (MDRD) Glucose Calcium Total Bilirubin AST ALT Alkaline Phosphatase Troponin I High Sens < 2.3 L Total Protein Albumin Globulin Albumin/Globulin Ratio Lipase Urine Color YELLOW Urine Clarity CLEAR Urine pH 7.0 Ur Specific [place] 1.025 1.025 Urine Protein NEGATIVE Urine Glucose (UA) NEGATIVE Urine Ketones NEGATIVE Urine Occult Blood NEGATIVE Urine Nitrite NEGATIVE Urine Bilirubin NEGATIVE Urine Urobilinogen 0.2 (NORMAL) Ur Leukocyte Esterase NEGATIVE Ur Microscopic Review NOT INDICATED Urine Culture Comments NOT INDICATED Urine HCG, Qual NEGATIVE PD MEDICAL DECISION MAKING - ED course ED course: 28-year-old woman presents with left-sided pain, leg arm and neck. Seems more muscular than anything. That said she does have some issues with obesity and tobacco. Also noted to be tachycardic. As such as significant work-up was undertaken which at this juncture rules out an acute heart issue or DVT/PE. Of note the tachycardia is a chronic issue for which she has had a previous work-up which was negative per her. Departure - Departure Disposition: 01 Home, Self Care Clinical Impression: Left upper limb pain, Neck pain, Left leg pain Condition: Good Record reviewed to determine appropriate education?: Yes Instructions: ED Chest Pain Atypical Unkn Cause, ED Muscle Pain Leg Cramps Comments: Work-up today shows normal cardiac enzymes, normal liver and kidney and electrolyte panels. D-dimer is negative ruling out blood clot. Return for new or worsening symptoms, ibuprofen as needed for the pain. Drink plenty of fluids.
[2019-10-03 16:59] LABS: ALBUMIN 3.8 g/dL (3.2-5.5); ALBUMIN/GLOBULIN RATIO 1.3 (1.0-2.2); BILIRUBIN,TOTAL 0.4 mg/dL (0.2-1.0); CALCIUM 8.4 mg/dL (8.5-10.3); CREATININE 0.7 mg/dL (0.4-1.0); TOTAL PROTEIN 6.8 g/dL (6.7-8.2)
[2019-10-03 17:45] LABS: BILIRUBIN,URINE NEGATIVE (NEGATIVE); GLUCOSE, URINE (UA) NEGATIVE (NEGATIVE); KETONES,URINE (UA) NEGATIVE (NEGATIVE); LEUKOCYTE ESTERASE, URINE NEGATIVE (NEGATIVE); NITRITE,URINE NEGATIVE (NEGATIVE); OCCULT BLOOD,URINE NEGATIVE (NEGATIVE); PROTEIN,URINE NEGATIVE (NEGATIVE); UROBILINOGEN,URINE 0.2 (NORMAL) E.U./dL (NORMAL)
[2019-10-03 17:48] LABS: CLARITY,URINE CLEAR (CLEAR)
[2019-10-03 17:49] LABS: HCG UR QUAL NEGATIVE
[2019-10-03 17:58] VITALS: BP 127/88
== END 2019-10-03 18:05 | disposition home or self-care (01) ==
LOC: ED 15:57
DX: M54.2 Cervicalgia (principal); M79.602 Pain in left arm; M79.605 Pain in left leg; R00.0 Tachycardia, unspecified; E66.9 Obesity, unspecified; Z68.39 Body mass index [BMI] 39.0-39.9, adult; F17.200 Nicotine dependence, unspecified, uncomplicated
CPT/HCPCS: 36415; 80053; 81001; 81003; 81025; 83690; 84484; 85025; 85379; 87086; 93005; 99283; 99284

== ENCOUNTER 2020-01-25 19:16 | Outpatient (CLI) | payer MEDICAID ==
[2020-01-25 19:51] LABS: BASOPHILS # (AUTO) 0.1 10^3/uL (0.0-0.1); BASOPHILS % (AUTO) 0.8 %; EOSINOPHILS # (AUTO) 0.6 10^3/uL (0.0-0.7); EOSINOPHILS % (AUTO) 4.9 %; HGB - HEMOGLOBIN 13.9 g/dL (12.0-16.0); LYMPHOCYTES # (AUTO) 3.7 10^3/uL (1.5-3.5); LYMPHOCYTES % (AUTO) 31.6 %; MEAN CORPUSCULAR HGB CONC 33.4 g/dL (32.0-36.0); MEAN CORPUSCULAR VOLUME 89.8 fL (81.0-99.0); MEAN PLATELET VOLUME 9.4 fL (7.9-10.8); MONOCYTES # (AUTO) 0.6 10^3/uL (0.0-1.0); MONOCYTES % (AUTO) 5.4 %; NEUTROPHILS # (AUTO) 6.7 10^3/uL (1.5-6.6); NEUTROPHILS % (AUTO) 56.9 %; PLT - PLATELET COUNT 407 10^3/uL (130-450); RED BLOOD COUNT 4.63 10^6/uL (4.20-5.40); RED CELL DISTRIBUTION WIDTH 12.7 % (12.0-15.0); WHITE BLOOD COUNT 11.7 x10^3/uL (4.8-10.8)
[2020-01-25 20:12] LABS: ALBUMIN 4.4 g/dL (3.2-5.5); ALBUMIN/GLOBULIN RATIO 1.4 (1.0-2.2); ALKALINE PHOSPHATASE 77 IU/L (42-121); ALT ALANINE AMINOTRANSFERASE 15 IU/L (10-60); AST ASPARTATE AMINOTRANSFERASE 15 IU/L (10-42); BILIRUBIN,TOTAL 0.5 mg/dL (0.2-1.0); BUN - BLOOD UREA NITROGEN 11 mg/dL (6-20); CALCIUM 9.5 mg/dL (8.5-10.3); CARBON DIOXIDE - CO2 31 mmol/L (21-32); CHLORIDE 98 mmol/L (101-111); CHOL/HDL RATIO 3.5 (<4.4); CHOLESTEROL 184 mg/dL; CREATININE 0.9 mg/dL (0.4-1.0); GLUCOSE 99 mg/dL (70-100); HDL CHOLESTEROL 53 mg/dL; LDL CHOLESTEROL,CALCULATED 110 mg/dL; LDL/HDL RATIO 2.1 (<4.4); SODIUM 139 mmol/L (135-145); TOTAL PROTEIN 7.6 g/dL (6.7-8.2); VLDL CHOLESTEROL 21 mg/dL
--- NOTE | 2020-01-26 09:27 | XRAY Report ---
PROCEDURE: Hand 3 View RT INDICATIONS: Hand joint pain, Right TECHNIQUE: 3 views of the hand(s) acquired. COMPARISON: FINDINGS: Bones: No fractures or dislocations. No suspicious bony lesions. Soft tissues: No suspicious soft tissue calcifications. IMPRESSION: No fracture or dislocation. No acute finding in the hand demonstrated radiographically. Given the per sistence of clinical symptoms, MRI could be considered to evaluate for potential ligamentous or other radiographically occult injury. Reviewed by: Erick Moss MD on 01/26/2020 9:25 AM PDT Approved by: Erick Moss MD on 01/26/2020 9:25 AM PDT Station ID: [id number]
== END 2020-01-25 19:17 | disposition home or self-care (01) ==
LOC: DI 19:16
PROVIDERS: ATTEND Physician Assistant
DX: Z00.00 Encounter for general adult medical examination without abnormal findings (principal); M79.641 Pain in right hand
CPT/HCPCS: 36415; 80053; 80061; 83721; 84443; 85025

== ENCOUNTER 2020-02-19 13:55 | Outpatient (CLI) | payer MEDICAID ==
--- NOTE | 2020-02-19 14:58 | CT Report ---
PROCEDURE: UPPER EXTREMITY WO - RT INDICATIONS: RT HAND ARDUS TECHNIQUE: Noncontrast 3 mm axial sections acquired of the right hand, with coronal and sagittal reformats. COMPARISON: Right hand radiograph dated 01/25/2020. FINDINGS: Image quality: Excellent. Bones: Alignment of right hand and wrist is anatomic. There is no fracture or dislocation. No perios teal reaction or callus formation is seen to suggest healing fracture. No intraosseous lesion is seen . Soft tissues: There is no significant wrist joint effusion. No evidence of extensor or flexor tendon rupture. No soft tissue hematoma or fluid collection. No gross muscle abnormality. IMPRESSION: Unremarkable CT examination of right hand. No evidence of fracture or dislocation. No gross soft tiss ue abnormality. Reviewed by: Candido Vasquez MD on 02/19/2020 2:57 PM PDT Approved by: Candido Vasquez MD on 02/19/2020 2:57 PM PDT Station ID: [id number]
== END 2020-02-19 13:56 | disposition home or self-care (01) ==
LOC: DI 13:55
PROVIDERS: ATTEND Physician Assistant
DX: M79.641 Pain in right hand (principal)

== ENCOUNTER 2020-04-07 15:40 | Outpatient (CLI) | payer MEDICAID ==
--- NOTE | 2020-04-07 14:21 | SLEEP CARE CONSULTATION ---
Information from patient questionnaire entered by Sherley Borja. I have reviewed and concur with the information entered by Sherley Borja. This document represents the service I personally performed and the decisions made by me, Tova Olivas ARNP. History of Present Illness Service Date and Time: 04/07/2020 1340 Reason for Visit: New patient Chief Complaint: reports: Insomnia, Unrefreshed sleep, Snoring, Excessive daytime sleepiness, Observed pauses in breathing, Frequent awakenings at night. denies: Fatigue, Other Date of Onset: 15 years (insomnia), 10 years (snoring/pauses in breathing) Usual bedtime: 4926-1925, very inconsistent Time it takes to fall asleep: 1-3 hours Snores at night: Yes Observed to quit breathing while asleep: Yes Sleeps alone due to snoring: No Number of times waking at night: 2-4 Reasons for waking at night: reports: Snoring (sometimes), Pain (*back), Bathroom. denies: Choking, Gasping for air Toss, Turn, or Twitch while sleeping: Yes Recalls having dreams: Yes Usually gets out of bed at: [id number] Feels refreshed in the morning: No Morning headache: No Sleepy or fatigued during the day: Yes (sometimes) Ever fallen asleep while driving: Yes (very brief nodding off; 2 occasions, no accidents) Takes day naps: Yes (sometimes; 1-2 times a week, 1 hours) Dreams during day naps: Yes Prior sleep studies: No Additional HPI information: I had the pleasure of seeing MIS LOPEZ today regarding the possibility of her having a sleep disorder. Her current complaints are snoring, insomnia, and observed pauses in breathing. Her snoring is moderate and her and daughter have told her she has stopped breathing while sleeping. She has difficulty falling asleep and has for the last 15 years. Her doctor recommended evaluation due to heart going out of rhythm for minutes at a time with some chest tightness. She has had heart issues for about 8 years where she will have palpitation and she misses beats. She has a short P wave which can cause irregular rhythm. Her father and paternal grandfather are both being treated for sleep apnea. Her brother had obstructive /central apnea when a child and continues to have apnea but is untreated. - Parasomnia Symptoms Ever been unable to move upon waking from sleep: Yes (2 times that she remembers) Walks in sleep: No Talks in sleep: Yes Ever acted out dreams in sleep: Yes (with nightmares) Ever felt weak in the knees when startled or emotional: No Bothered by creepy, crawly, restless sensations in legs: No Problems with memory or concentration: Yes (sometimes, both) Subjective Initial [place] Sleepiness Scale score: 9 (in 2019) Past Medical History Past Medical History: reports: Hypertension (intermittent high blood pressure, during high stress situations), Arrythmia, Anemia (acute instances, intermittent heavy periods, takes iron supplementation), Anxiety. 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 Patient is and lives in [place]. Have you smoked in the past 12 months: Yes Cigarettes per day (20/pack): 20 Years of smokin Smoking Pack Years: 13.0 Alcohol use: Yes Alcohol amount and frequency: once every 3 months, rarely Caffeine use: Yes Caffeine amount and frequency: 1-3 cups coffee/day Family History Family history of sleep disordered breathing: Yes Family Hx Sleep Apnea: Father: Sleep apnea - Treated, Sibling: Sleep apnea - Untreated, Grandparent: Sleep apnea - Treated Allergies and Home Medications Drug allergies reviewed: Yes (chlorhexidine) Home medication list reviewed: Yes Allergy and home medication list: tylenol iron supplements during menses Review of Systems Weight gain over past 5 years: fluxuates, about 40 Weight loss over past 5 years: fluctuates, about 40, weighs 238 lbs now Cardiovascular: reports: high blood pressure, palpitations, chest pain, irregular heart rate or pulse. denies: leg or foot swelling Respiratory: denies: shortness of breath, chronic cough Gastrointestinal: denies: heartburn, difficulty swallowing Neurological: reports: headaches, gait or balance problems, fainting or unconsciousness (years ago from brain lesions), other (lesions in her brain, she gets tremors). denies: seizure, head trauma Psychiatric: reports: anxiety. denies: Attention Deficit Hyperactivity, depression, mood disorder, claustrophobia Ear/Nose/Throat: reports: nose bleeds (in winter sometimes), wisdom teeth removed. denies: nasal congestion, sinus problems, dry mouth/throat, injury to nose, tonsillectomy (they are "huge") Endocrine: reports: sluggishness, too hot or cold (*too hot) Musculoskeletal: reports: joint pain, back pain, other (tremors from 4 brain lesions) Immunologic: reports: allergies to food or environment (blueberries) Physical Exam Height: 5 ft 5 in Impression and Plan 1. Suspected Obstructive Sleep Apnea-Hypopnea Syndrome, as suggested by a history of loud and irregular snoring, observed cessation of breath while asleep, frequent awakening during the night, unrefreshed sleep, cognitive impairment, and excessive daytime sleepiness. I reviewed with patient that a narrow oropharynx and obesity are common predisposing factors for obstructive sleep apnea-hypopnea syndrome. I recommend proceeding to polysomnography to confirm the diagnosis and to assess severity. If the patient has significant sleep disordered breathing, a manual CPAP titration study will also be performed to find the optimal treatment pressure. I informed the patient of what the sleep studies involve and after some discussion, obtained agreement to proceed. The pathophysiology of obstructive sleep apnea-hypopnea syndrome was discussed with the patient and health risks of cardiovascular and cerebrovascular disease if not treated. Risks of drowsy driving discussed in detail and patient advised to avoid long distance driving and to pull out operator at the first sign of drowsiness. Patient agreed to plan. * Schedule polysomnography +- manual CPAP titration study. * Avoid long distance driving or driving when feeling sleepy. * Avoid alcohol, sedative and muscle relaxant around bedtime. * Attempt to lose weight. * Review instructions provided by trained office staff on how to prepare for the sleep study. * Return for follow-up after sleep study completed. Visit Type: Telehealth Video Video Type: [employer] Patient Location: Home Location of Provider: Home Patient agrees and consents to this telehealth visit type: Yes Patient agrees to have their insurance billed: Yes Time Spent with Patient (minutes): 35 Provider Statement: I spent 100% of the Telehealth Video Call with the patient with greater than 50% spent counseling the patient and coordination of care.
== END 2020-04-07 15:41 | disposition home or self-care (01) ==
LOC: SC 15:40
PROVIDERS: ATTEND Nurse Practitioner Family
DX: R06.83 Snoring (principal); G47.00 Insomnia, unspecified; G47.10 Hypersomnia, unspecified; G47.8 Other sleep disorders; R06.81 Apnea, not elsewhere classified; I49.9 Cardiac arrhythmia, unspecified; E66.3 Overweight; F17.210 Nicotine dependence, cigarettes, uncomplicated

== ENCOUNTER 2020-07-06 01:12 | Emergency (ER) | payer MEDICAID ==
--- NOTE | 2020-07-06 01:40 | ED Physician Documentation ---
PD HPI ABD PAIN - Stated complaint Stated Complaint: LT ADB PX, GLF, DIZZYNESS, N/V - Chief complaint Chief Complaint: Trauma Abd - History obtained from History obtained from: Patient - History of Present Illness Timing - onset: Enter time (18:45) Timing - details: Abrupt onset Pain level now: 8 Quality: Pain Location: LUQ Radiation: Chest (left lower anterolateral chest) Improved by: Laying still Worsened by: Moving, Breathing, Palpation Associated symptoms: Nausea, Vomiting Recently seen: Not recently seen - Additional information Additional information: fell at home at approximately 6:45 PM today when she was walking down stairs, missing the last one and then tripping forward on her boots when she attempted to prevent herself from falling. she fell forward and struck left anterolateral chest and LUQ on floor, c/o pain in these areas that has steadily worsened since the injury. Denies LOC, denies head injury, denies other injury besides LUQ/left anterolateral chest. Review of Systems Cardiac: reports: Chest pain / pressure (chest wall pain, left lower anterolateral) Respiratory: denies: Dyspnea, Cough, Hemoptysis, Wheezing GI: reports: Abdominal Pain, Nausea, Vomiting. denies: Abdominal Swelling, Constipation, Diarrhea PD PAST MEDICAL HISTORY - Past Medical History Past Medical History: Yes Cardiovascular: None Respiratory: Asthma Endocrine/Autoimmune: None GI: Other FLOOR SANDER: None : None HEENT: Chronic vision loss Psych: None Musculoskeletal: None Derm: None - Past Surgical History Past Surgical History: Yes General: Other - Present Medications Home Medications: Ambulatory Orders Medication Instructions Recorded Confirmed Albuterol Sulf [Ventolin Hfa 1 - 2 puffs INH Q4HR PRN #1 inhaler 03/11/17 Inhaler] Benzonatate [Tessalon] 100 mg PO TID PRN #25 capsule 03/11/17 Doxycycline Hyclate 100 mg PO BID #14 tablet 03/11/17 dexAMETHasone [Decadron] 4 mg PO DAILY #5 tablet 03/11/17 guaiFENesin/CODEINE [Robitussin AC] 10 ml PO Q6H PRN #240 ml 03/11/17 Azithromycin [Zithromax] 1 tab PO DAILY #6 tablet 08/20/19 Benzonatate [Tessalon Perle] 100 - 200 mg PO TID PRN #30 capsule 03/12/20 guaiFENesin/CODEINE [Robitussin AC] 5 - 10 ml PO Q6H PRN #120 ml 08/20/19 cephALEXin [Keflex] 500 mg PO BID 14 Days #28 capsule 01/05/20 oxyCODONE [Roxicodone] 5 - 10 mg PO Q6H PRN #14 tablet 07/06/20 - Allergies Allergies/Adverse Reactions: Allergies Allergy/AdvReac Type Severity Reaction Status Date / Time chlorhexidine Allergy Hives Verified 01/05/20 22:42 - Social History Does the pt smoke?: Yes Smoking Status: Current every day smoker Does the pt drink ETOH?: Yes Does the pt have substance abuse?: No - Immunizations Immunizations are current?: Yes - POLST Patient has POLST: No PD ED PE NORMAL - Vitals Vital signs reviewed: Yes - General General: Alert and oriented X 3, No acute distress, Well developed/nourished - Cardiac Cardiac: RRR, No murmur - Respiratory Respiratory: No respiratory distress, Clear bilaterally - Abdomen Abdomen: Soft, Non distended, Other (TTP LUQ without rebound or guarding) - Back Back: No CVA TTP, No spinal TTP - Derm Derm: Normal color, Warm and dry PD ED PE EXPANDED - Visual Whole body visual: 1 - tenderness (TTP chest wall without crepitus) Results - Vitals Vitals: Vital Signs - 24 hr 07/06/20 07/06/20 07/06/20 01:16 03:22 04:21 Temperature 36.8 C 36.9 C 36.4 C L Heart Rate 114 H 92 85 Respiratory 22 19 18 Rate Blood Pressure 129/62 129/63 143/96 H O2 Saturation 100 97 99 Oxygen O2 Source Room air - Labs Labs: Laboratory Tests 07/06/20 07/06/20 07/06/20 02:19 02:19 02:19 WBC 10.4 RBC 4.33 Hgb 12.7 Hct 38.6 MCV 89.1 MCH 29.3 MCHC 32.9 RDW 12.9 Plt Count 383 MPV 9.2 Neut # (Auto) 5.7 Lymph # (Auto) 3.3 [place] # (Auto) 0.8 Eos # (Auto) 0.6 Baso # (Auto) 0.1 Absolute Nucleated RBC 0.00 Nucleated RBC % 0.0 Sodium 135 Potassium 3.3 L Chloride 101 Carbon Dioxide 26 Anion Gap 8.0 BUN 13 Creatinine 0.7 Estimated GFR (MDRD) 98 Glucose 100 Calcium 8.9 Total Bilirubin 0.5 AST 15 ALT 13 Alkaline Phosphatase 72 Total Protein 7.0 Albumin 4.0 Globulin 3.0 Albumin/Globulin Ratio 1.3 Lipase 39 HCG, Quant < 0.60 Urine Color Urine Clarity Urine pH Ur Specific [place] Urine Protein Urine Glucose (UA) Urine Ketones Urine Occult Blood Urine Nitrite Urine Bilirubin Urine Urobilinogen Ur Leukocyte Esterase Urine RBC Urine WBC Ur Squamous Epith Cells Urine Bacteria Ur Microscopic Review Urine Culture Comments 07/06/20 02:31 WBC RBC Hgb Hct MCV MCH MCHC RDW Plt Count MPV Neut # (Auto) Lymph # (Auto) [place] # (Auto) Eos # (Auto) Baso # (Auto) Absolute Nucleated RBC Nucleated RBC % Sodium Potassium Chloride Carbon Dioxide Anion Gap BUN Creatinine Estimated GFR (MDRD) Glucose Calcium Total Bilirubin AST ALT Alkaline Phosphatase Total Protein Albumin Globulin Albumin/Globulin Ratio Lipase HCG, Quant Urine Color YELLOW Urine Clarity CLEAR Urine pH 6.0 Ur Specific [place] >=1.030 H Urine Protein NEGATIVE Urine Glucose (UA) NEGATIVE Urine Ketones NEGATIVE Urine Occult Blood MODERATE H Urine Nitrite NEGATIVE Urine Bilirubin NEGATIVE Urine Urobilinogen 0.2 (NORMAL) Ur Leukocyte Esterase NEGATIVE Urine RBC 6-10 H Urine WBC 0-3 Ur Squamous Epith Cells FEW Squamous Urine Bacteria Rare Ur Microscopic Review INDICATED Urine Culture Comments NOT INDICATED - Rads (name of study) chest xray Radiology: Prelim report reviewed, See rad report CT A/P with IV contrast Radiology: Prelim report reviewed, See rad report PD MEDICAL DECISION MAKING - ED course Complexity details: reviewed results, re-evaluated patient, considered differential, d/w patient ED course: patient presents after trip and fall at home, blunt injury to LUQ abdomen and left lower anterolateral chest wall. Unremarkable findings on CT A/P (IV contrast) and chest xray. She is in NAD on reevaluation after IV zofran and dilaudid. results d/w patient and she is comfortable with d/c home Departure - Departure Disposition: Home, Self Care Clinical Impression: Fall Qualifiers: Encounter type: initial encounter Qualified Code(s): W19.XXXA - Unspecified fall, initial encounter Chest wall contusion Qualifiers: Encounter type: initial encounter Laterality: left Qualified Code(s): S20.212A - Contusion of left front wall of thorax, initial encounter Condition: Good Instructions: ED Abdominal Injury Blunt Benign, ED Contusion Chest Wall Prescriptions: oxyCODONE [Roxicodone] 5 - 10 mg PO Q6H PRN #14 tablet PRN Reason: Pain Discharge Date/Time: 07/06/20 04:23
[2020-07-06] MEDS ORDERED: ONDANSETRON 4 MG/2 ML VIAL IVP STA (02:05)
[2020-07-06] MEDS ORDERED: HYDROmorphone 1 MG/ML CARPUJECT IVP STA (02:05)
[2020-07-06] MEDS ORDERED: IOVERSOL 320 100 ML VIAL IVP ONE ×2 (02:25→03:32)
[2020-07-06 02:26] LABS: BASOPHILS # (AUTO) 0.1 10^3/uL (0.0-0.1); BASOPHILS % (AUTO) 0.7 %; EOSINOPHILS # (AUTO) 0.6 10^3/uL (0.0-0.7); EOSINOPHILS % (AUTO) 5.4 %; HGB - HEMOGLOBIN 12.7 g/dL (12.0-16.0); LYMPHOCYTES # (AUTO) 3.3 10^3/uL (1.5-3.5); LYMPHOCYTES % (AUTO) 31.9 %; MEAN CORPUSCULAR HEMOGLOBIN 29.3 pg (27.0-31.0); MEAN CORPUSCULAR HGB CONC 32.9 g/dL (32.0-36.0); MEAN CORPUSCULAR VOLUME 89.1 fL (81.0-99.0); MEAN PLATELET VOLUME 9.2 fL (7.9-10.8); MONOCYTES # (AUTO) 0.8 10^3/uL (0.0-1.0); MONOCYTES % (AUTO) 7.2 %; NEUTROPHILS # (AUTO) 5.7 10^3/uL (1.5-6.6); NEUTROPHILS % (AUTO) 54.5 %; PLT - PLATELET COUNT 383 10^3/uL (130-450); RED BLOOD COUNT 4.33 10^6/uL (4.20-5.40); RED CELL DISTRIBUTION WIDTH 12.9 % (12.0-15.0); WHITE BLOOD COUNT 10.4 x10^3/uL (4.8-10.8)
[2020-07-06 02:38] LABS: ALBUMIN/GLOBULIN RATIO 1.3 (1.0-2.2); BILIRUBIN,TOTAL 0.5 mg/dL (0.2-1.0); CALCIUM 8.9 mg/dL (8.5-10.3); CREATININE 0.7 mg/dL (0.4-1.0)
[2020-07-06 02:46] LABS: BILIRUBIN,URINE NEGATIVE (NEGATIVE); GLUCOSE, URINE (UA) NEGATIVE (NEGATIVE); KETONES,URINE (UA) NEGATIVE (NEGATIVE); LEUKOCYTE ESTERASE, URINE NEGATIVE (NEGATIVE); NITRITE,URINE NEGATIVE (NEGATIVE); OCCULT BLOOD,URINE MODERATE (NEGATIVE); PROTEIN,URINE NEGATIVE (NEGATIVE); UROBILINOGEN,URINE 0.2 (NORMAL) E.U./dL (NORMAL)
[2020-07-06 02:50] LABS: CLARITY,URINE CLEAR (CLEAR)
[2020-07-06 02:52] LABS: BACTERIA,URINE Rare /HPF (None Seen); SQUAMOUS EPITHELIAL CELL,UR FEW Squamous (<= Few)
[2020-07-06 04:23] VITALS: BP 143/96
--- NOTE | 2020-07-06 08:42 | CT Report ---
PROCEDURE: Abdomen/Pelvis W INDICATIONS: LUQ pain, injury CONTRAST: IV CONTRAST: Optiray 320 ml: 100 PO CONTRAST: *NO PO CONTRAST TECHNIQUE: After the administration of intravenous contrast, 5 mm thick sections acquired from the diaphragms to the symphysis. 5 mm thick coronal and sagittal reformats were acquired. For radiation dose reducti on, the following was used: automated exposure control, adjustment of mA and/or kV according to surendra ent size. COMPARISON: 10/10/2017 FINDINGS: Image quality: Excellent. ABDOMEN: Lung bases: Lung bases are clear. Heart size is normal. Solid organs: Liver and spleen are normal in size and enhancement. Gallbladder is unremarkable. Bi liary system is non dilated. Pancreas enhances normally. No adrenal nodules. Kidneys demonstrate n ormal size and enhancement, without hydronephrosis. Peritoneum and bowel: Bowel loops demonstrate normal wall thickness and caliber. No free fluid or a ir. Nodes and vessels: No retroperitoneal or mesenteric adenopathy by size criteria. Aorta and inferior vena cava are normal in size. Miscellaneous: No ventral hernias. PELVIS: Genitourinary: Bladder wall thickness is normal. Miscellaneous: No inguinal hernias or adenopathy. IUD. Bones: No suspicious bony lesions. No vertebral body compression fractures. No other fractures IMPRESSION: 1. No evidence of acute process in the abdomen and pelvis. No evidence of significant sequelae of acu te trauma. A preliminary report with the above findings was provided at the time of the study by [facility]. Reviewed by: Jonathan Padilla MD on 07/06/2020 8:40 AM [facility] Approved by: Jonathan Padilla MD on 07/06/2020 8:40 AM PST Station ID: [id number]
--- NOTE | 2020-07-06 09:40 | XRAY Report ---
PROCEDURE: Chest 2 View X-Ray INDICATIONS: left chest pain, injury TECHNIQUE: 2 view(s) of the chest. COMPARISON: Chest x-ray 08/20/2019 FINDINGS: Surgical changes and devices: None. Lungs and pleura: No pleural effusions or pneumothorax. Lungs are clear. Mediastinum: Mediastinal contours are normal. Heart size is normal. Bones and chest wall: No suspicious bony abnormalities. Soft tissues appear unremarkable. IMPRESSION: No acute pulmonary process. The above findings are concordant with preliminary report. Reviewed by: Liz Fields MD on 07/06/2020 9:39 AM PST Approved by: Liz Fields MD on 07/06/2020 9:39 AM [facility] Station ID: [id number]
== END 2020-07-06 04:23 | disposition home or self-care (01) ==
LOC: ED 01:12
DX: F17.200 Nicotine dependence, unspecified, uncomplicated (principal); S20.212A Contusion of left front wall of thorax, initial encounter; W10.9XXA Fall (on) (from) unspecified stairs and steps, initial encounter; Y93.01 Activity, walking, marching and hiking
CPT/HCPCS: 71046; 74177; 80053; 81001; 83690; 84702; 85025; 96374; 99284; J1170; Q9967; 81003; 87086

== ENCOUNTER 2020-09-14 03:41 | Emergency (ER) | payer MEDICAID ==
--- OUTSIDE RECORDS SUMMARY | 2020-09-14 03:44 | EXTERNAL MEDICAL SUMMARY RPT | Continuity of Care Document ---
:1990 Demographics Phone Unavailable Preferred Language Unknown Marital Status Unknown Muslim Affiliation Unknown Race Unknown Ethnic Group Unknown Author Organization [place] Address [address] [id number] Phone Social History date description facility [id number]
--- OUTSIDE RECORDS SUMMARY | 2020-09-14 03:45 | EXTERNAL MEDICAL SUMMARY RPT | Continuity of Care Document ---
:1990 Demographics Phone Unavailable Preferred Language Unknown Marital Status Unknown Spiritism Affiliation Unknown Race Unknown Ethnic Group Unknown Author Organization [facility] Address [address] [id number] Phone Social History date description facility [id number]
[2020-09-14] MEDS ORDERED: methocarbamoL 500 MG TABLET PO STA (03:56)
[2020-09-14 04:02] VITALS: BP 128/82
[2020-09-14] MEDS ORDERED: LIDOCAINE PATCH 5% TOP STA (04:02)
[2020-09-14] MEDS ORDERED: LIDOCAINE-MPF 2% 5 ML VIAL IM ONE (04:03)
--- NOTE | 2020-09-14 04:10 | ED Physician Documentation ---
History of Present Illness - Stated complaint Stated Complaint: BACK PX - Chief complaint Chief Complaint: Back Pain - History obtained from History obtained from: Patient - Additonal information Additional information: 29-year-old woman presents with right lower back strain after twisting while moving bricks yesterday. She states that the pain was sudden in onset, initially moderate severity and then waxing and waning, with severe pain in the early hours of the morning today. sharp quality, radiating to R hip. She states "it took me an hour and a half just to get out of bed". She took 6 ibuprofen prior to arrival without relief. Denies weakness in the legs, numbness in the groin, fecal or urinary incontinence or retention. Denies fevers, abdominal pain or rash. 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 : None HEENT: Chronic vision loss Psych: None Musculoskeletal: None Derm: None - Past Surgical History Past Surgical History: Yes General: Other - Present Medications Home Medications: Ambulatory Orders Medication Instructions Recorded Confirmed Albuterol Sulf [Ventolin Hfa 1 - 2 puffs INH Q4HR PRN #1 inhaler 03/11/17 Inhaler] oxyCODONE [Roxicodone] 5 - 10 mg PO Q6H PRN #14 tablet 07/06/20 Methocarbamol [Robaxin-750] 750 mg PO Q8H PRN #8 tablet 09/14/20 - Allergies Allergies/Adverse Reactions: Allergies Allergy/AdvReac Type Severity Reaction Status Date / Time chlorhexidine Allergy Hives Verified 09/14/20 03:43 - Social History Does the pt smoke?: Yes Smoking Status: Current every day smoker Does the pt drink ETOH?: Yes Does the pt have substance abuse?: No - Immunizations Immunizations are current?: Yes - POLST Patient has POLST: No PD ED PE NORMAL - Vitals Vital signs reviewed: Yes - General General: Alert and oriented X 3, No acute distress, Well developed/nourished - HEENT HEENT: Atraumatic, PERRL, EOMI - Back Back: No spinal TTP, Other (Right lower backup administrator in a muscular distribution. negative straight leg raise) - Derm Derm: Normal color, Warm and dry, No rash - Extremities Extremities: No deformity, Other (2+ bilateral PT pulses. 2+ bilateral DP pulses. Normal sensation and strength bilateral lower extremity.) - Neuro Neuro: Alert and oriented X 3, No motor deficit, No sensory deficit Results - Vitals Vitals: Vital Signs - 24 hr 09/14/20 09/14/20 09/14/20 03:43 03:50 04:02 Temperature 36.8 C 36.8 C 36.8 C Heart Rate 98 98 83 Respiratory 18 18 18 Rate Blood Pressure 145/94 H 145/94 H 128/82 H O2 Saturation 100 100 100 Oxygen O2 Source Room air PD MEDICAL DECISION MAKING - ED course ED course: 29-year-old woman presents with severe low back strain without signs/symptoms of cord compression, sciatica, or spinal involvement. She states that she drove here but that her will pick her up to bring her home. We will trial muscle relaxer and trigger point injection. Patient ambulatory to bathroom without difficulty after trigger point injection, lidocaine patch, and robaxin. requesting to go home and sleep. her will come pick her up. Departure - Departure Disposition: 01 Home, Self Care Clinical Impression: Strain of muscle, fascia and tendon of lower back, initial encounter Condition: Good Instructions: ED Spasm Back No Trauma Prescriptions: Methocarbamol [Robaxin-750] 750 mg PO Q8H PRN #8 tablet PRN Reason: Pain Comments: You were seen in the emergency department for lower back strain. You were given a muscle relaxer (Robaxin) and a trigger point injection with lidocaine, a numbing medication. We also put an IcyHot patch on your lower back. You can take ibuprofen 600 mg every 6 hours as needed for pain tomorrow on a full stomach. Try to do very gentle stretching exercises while limbered up in a hot shower. It is important not to overexert yourself because this can worsen muscle spasm. Return to emergency department if you experience any new or worsening symptoms or have other concerns. Follow-up with your primary doctor. Forms: Activity restrictions
== END 2020-09-14 04:33 | disposition home or self-care (01) ==
LOC: ED 03:41
DX: S39.012A Strain of muscle, fascia and tendon of lower back, initial encounter (principal); X50.1XXA Overexertion from prolonged static or awkward postures, initial encounter; Y93.89 Activity, other specified; F17.200 Nicotine dependence, unspecified, uncomplicated
CPT/HCPCS: 20552; 99282; 99284; A9270

== ENCOUNTER 2020-09-20 17:03 | Outpatient (CLI) | payer MEDICAID ==
--- NOTE | 2020-09-20 18:20 | XRAY Report ---
PROCEDURE: Lumbar Spine 2 View INDICATIONS: LOW BACK PX TECHNIQUE: 2 views of the lumbar spine were acquired. COMPARISON: None. FINDINGS: Bones: 6 dot-yei-vthsnoi vertebrae are present. There is normal bony alignment. No vertebral body c ompression fractures. No suspicious bony lesions. Soft tissues: Overlying bowel gas pattern is normal. No suspicious soft tissue calcifications. IMPRESSION: Transitional anatomy with 6 lumbar type nonrib-bearing vertebral body seen. No compressi on fracture or spondylolisthesis is seen in lumbar spine. Reviewed by: Candido Vasquez MD on 09/20/2020 5:18 PM LOAN Approved by: Candido Vasquez MD on 09/20/2020 5:18 PM AKSAM Station ID: [id number]
== END 2020-09-20 23:59 | disposition home or self-care (01) ==
LOC: DI.N 17:03
PROVIDERS: ATTEND Family Medicine
DX: M54.5 Low back pain (principal); R30.0 Dysuria
CPT/HCPCS: 87077; 87086; 87181

== ENCOUNTER 2020-11-16 09:47 | Emergency (ER) | payer MEDICAID ==
--- OUTSIDE RECORDS SUMMARY | 2020-11-16 09:51 | EXTERNAL MEDICAL SUMMARY RPT | Continuity of Care Document ---
:1990 Demographics Phone Unavailable Preferred Language Unknown Marital Status Unknown Confucianist Affiliation Unknown Race Unknown Ethnic Group Unknown Author Organization [facility] Address [address] [phone] Phone Allergies Encounters Medications Problems Results
[2020-11-16] MEDS ORDERED: HYDROcod/ACETAM 5/325 MG TABLET PO STA (10:01)
--- NOTE | 2020-11-16 10:03 | ED Physician Documentation ---
PD HPI UPPER EXT INJURY - Stated complaint Stated Complaint: RT ARM INJ - Chief complaint Chief Complaint: Ext Problem - History obtained from History obtained from: Patient - Additonal information Additional information: Tripped and fell in her bedroom this morning going down on the right arm. She has pain to the proximal ulna, the wrist, and fourth finger. No other injuries. No possibility of . Tried ibuprofen prior to arrival without relief. 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 : None HEENT: Chronic vision loss Psych: None Musculoskeletal: None Derm: None - Past Surgical History Past Surgical History: Yes General: Other - Present Medications Home Medications: Ambulatory Orders Medication Instructions Recorded Confirmed HYDROcod/ACETAM 5/325 [[place] 5/325] 1 - 2 tab PO Q6H PRN #15 tablet 11/16/20 - Allergies Allergies/Adverse Reactions: Allergies Allergy/AdvReac Type Severity Reaction Status Date / Time chlorhexidine Allergy Hives Verified 11/16/20 09:54 - Social History Does the pt smoke?: Yes Smoking Status: Current every day smoker Does the pt drink ETOH?: Yes Does the pt have substance abuse?: No - Immunizations Immunizations are current?: Yes - POLST Patient has POLST: No PD ED PE NORMAL - Vitals Vital signs reviewed: Yes - General General: Alert and oriented X 3, No acute distress - HEENT HEENT: PERRL, EOMI - Neck Neck: Supple, no meningeal sign, No bony TTP - Extremities Extremities: Other (Right fourth finger is swollen and tender at the PIP, limited range of motion. Quite tender over the distal radius distally on the right. Mild tenderness over the proximal ulna on the right. At the elbow and above there is no tenderness.) - Neuro Neuro: Alert and oriented X 3, Normal speech Results - Vitals Vitals: Vital Signs - 24 hr 11/16/20 09:50 Temperature 36.3 C L Heart Rate 112 H Respiratory 18 Rate Blood Pressure 131/89 H O2 Saturation 100 Oxygen O2 Source Room air - Rads (name of study) Trays of the right fourth finger, right wrist, right forearm Radiology: EMP read contemporaneously (No fractures) PD MEDICAL DECISION MAKING - ED course ED course: I am prescribing a short course of short-acting opioid pain medication for this patient. I have reviewed the patients SAFETY RISK LEAD and no concerning findings were noted. I have discussed that the opioids are for short term therapy only, and will not be refilled from the ED. Departure - Departure Disposition: 01 Home, Self Care Clinical Impression: Fall from ground level Right wrist sprain Qualifiers: Encounter type: initial encounter Qualified Code(s): S63.501A - Unspecified sprain of right wrist, initial encounter Finger sprain Qualifiers: Encounter type: initial encounter Finger: ring finger Sprain of finger site: interphalangeal joint Laterality: right Qualified Code(s): S63.634A - Sprain of interphalangeal joint of right ring finger, initial encounter Forearm contusion Qualifiers: Encounter type: initial encounter Laterality: right Qualified Code(s): S50.11XA - Contusion of right forearm, initial encounter Condition: Good Record reviewed to determine appropriate education?: Yes Instructions: ED Sprain Wrist, ED Splint Care Velcro Prescriptions: HYDROcod/ACETAM 5/325 [[place] 5/325] 1 - 2 tab PO Q6H PRN #15 tablet PRN Reason: Pain Comments: Recheck with your doctor in a week if not better, return for new or worsening symptoms. Ice and elevate. In addition to the prescription pain medication you can take ibuprofen as needed for pain. I am prescribing a short course of narcotic pain medication for you. These are potentially dangerous and addictive medications that should be used carefully. These medications may constipate you. Take an rmbq-epx-xhqabtx stool softener (docusate) twice daily with plenty of water while taking these medications. If you go 24 hours without a bowel movement, take xcoh-nfc-pkhuzgz miralax, per package instructions. Do not drink or drive while taking these medications. If you received narcotic or sedating medications while in the emergency department, do not drive for 24 hours. Store this medication in a safe, secure place and out of reach of children. It is a violation of federal law to give or sell this medication to another person or to use in a manner other than prescribed. The ED will not refill narcotic prescriptions, including prescriptions lost or s tolen. To dispose of unwanted medications: 1. [facility] at [address] in [place] has a medication drop box. They accept prescription medications (in pi ll form) Saturday through Saturday 9:00 a.m. to 5:00 p.m. 2. The [facility] [employer] accepts prescription medications (in pill form only) for disposal year round. Call for more information. 3. Contact the [facility] for the next [facility] sponsored prescription drug collection event. , [phone], or [phone]; Note that many narcotic pain relievers also contain Tylenol/acetaminophen. Please ensure that your total dose of acetaminophen from all sources does not exceed 3 g (3000 mg) per day.
--- OUTSIDE RECORDS SUMMARY | 2020-11-16 10:23 | EXTERNAL MEDICAL SUMMARY RPT | Continuity of Care Document ---
:1990 Demographics Phone Unavailable Preferred Language Unknown Marital Status Unknown Bahai Affiliation Unknown Race Unknown Ethnic Group Unknown Author Organization [facility] Address [address] [phone] Phone Allergies Encounters Medications Problems Results
--- NOTE | 2020-11-16 10:54 | XRAY Report ---
PROCEDURE: Wrist 4 View RT INDICATIONS: fall, r 4th finger/wrist/forearm inj TECHNIQUE: 3 views of the wrist were acquired. COMPARISON: X-ray forearm 11/16/2020 FINDINGS: Bones: No fractures or dislocations. No suspicious bony lesions. Soft tissues: No suspicious soft tissue calcifications. IMPRESSION: No visualized acute fracture or dislocation. However, occult injury cannot be excluded. Recommend frances rt interval imaging follow-up in 7-10 days as clinically indicated for additional evaluation. Reviewed by: Liz Fields MD on 11/16/2020 10:53 AM PDT Approved by: Liz Fields MD on 11/16/2020 10:53 AM PDT Station ID: [id number]
--- NOTE | 2020-11-16 10:55 | XRAY Report ---
PROCEDURE: Forearm RT INDICATIONS: fall, r 4th finger/wrist/forearm inj TECHNIQUE: 2 views of the forearm were acquired. COMPARISON: X-ray wrist 11/16/2020 FINDINGS: Bones: No fractures or dislocations. No suspicious bony lesions. Soft tissues: No suspicious soft tissue calcifications or masses. IMPRESSION: No visualized acute fracture or dislocation. However, occult injury cannot be excluded. Recommend frances rt interval imaging follow-up in 7-10 days as clinically indicated for additional evaluation. Reviewed by: Liz Fielsd MD on 11/16/2020 10:54 AM PDT Approved by: Liz Fields MD on 11/16/2020 10:54 AM PDT Station ID: [id number]
--- NOTE | 2020-11-16 10:56 | XRAY Report ---
PROCEDURE: Finger(s) RT INDICATIONS: fall, r 4th finger/wrist/forearm inj TECHNIQUE: AP hand, 3 views of the 4 finger(s) acquired. COMPARISON: X-ray wrist 11/16/2020 FINDINGS: Bones: No fractures or dislocations. No suspicious bony lesions. Soft tissues: No suspicious soft tissue calcifications. IMPRESSION: No visualized acute fracture or dislocation. However, occult injury cannot be excluded. Recommend frances rt interval imaging follow-up in 7-10 days as clinically indicated for additional evaluation. Reviewed by: Liz Fields MD on 11/16/2020 10:54 AM PDT Approved by: Liz Fields MD on 11/16/2020 10:54 AM PDT Station ID: [id number]
[2020-11-16 11:12] VITALS: BP 131/73
== END 2020-11-16 11:25 | disposition home or self-care (01) ==
LOC: ED 09:47
DX: S63.501A Unspecified sprain of right wrist, initial encounter (principal); S63.634A Sprain of interphalangeal joint of right ring finger, initial encounter; S50.11XA Contusion of right forearm, initial encounter; W01.0XXA Fall on same level from slipping, tripping and stumbling without subsequent striking against object, initial encounter; Y92.003 Bedroom of unspecified non-institutional (private) residence as the place of occurrence of the external cause; F17.200 Nicotine dependence, unspecified, uncomplicated
CPT/HCPCS: 73090; 73110; 73140; 99283; A9270

== ENCOUNTER 2020-11-17 18:58 | Outpatient (CLI) | payer MEDICAID ==
--- NOTE | 2020-11-18 09:11 | XRAY Report ---
PROCEDURE: Wrist 4 View RT INDICATIONS: R WRIST PX TECHNIQUE: 4 views of the wrist were acquired. COMPARISON: 11/16/2020 FINDINGS: Bones: No fractures or dislocations. No suspicious bony lesions. Scaphoid view: Scaphoid is intact. Soft tissues: No suspicious soft tissue calcifications. IMPRESSION: No wrist fracture or dislocation. No finding to explain patient's symptoms. Reviewed by: Candido Vasquez MD on 11/18/2020 9:10 AM PDT Approved by: Candido Vasquez MD on 11/18/2020 9:10 AM PDT Station ID: [id number]
--- NOTE | 2020-11-18 09:12 | XRAY Report ---
PROCEDURE: Hand 2 View RT INDICATIONS: R HAND PX TECHNIQUE: 2 views of the hand(s) acquired. COMPARISON: 01/25/2020 FINDINGS: Bones: No fractures or dislocations. No suspicious bony lesions. Soft tissues: No suspicious soft tissue calcifications. IMPRESSION: No acute right hand fracture or dislocation. Reviewed by: Candido Vasquez MD on 11/18/2020 9:11 AM PDT Approved by: Candido Vasquez MD on 11/18/2020 9:11 AM PDT Station ID: [id number]
== END 2020-11-17 23:59 | disposition home or self-care (01) ==
LOC: DI.N 18:58
PROVIDERS: ATTEND Family Medicine
DX: M25.531 Pain in right wrist (principal); M79.641 Pain in right hand

== ENCOUNTER 2021-09-23 10:45 | Outpatient (CLI) | payer MEDICAID ==
--- NOTE | 2021-09-23 11:43 | XRAY Report ---
PROCEDURE: Ankle 3 View LT INDICATIONS: OTHER SPECIFIED INJURIES OF LEFT ANKLE INITIAL ENCOUNTER TECHNIQUE: 3 views of the ankle were acquired. COMPARISON: None FINDINGS: Bones: No fractures or dislocations. Ankle mortise is normally aligned. No suspicious bony lesions . Soft tissues: No tibiotalar joint effusion. Achilles tendon appears normal. IMPRESSION: Ankle plain film study within normal limits. Reviewed by: Tommy Briseno MD on 09/23/2021 10:42 AM LOAN Approved by: Tommy Briseno MD on 09/23/2021 10:42 AM LOAN Station ID: [id number]
== END 2021-09-23 10:46 | disposition home or self-care (01) ==
LOC: DI 10:45
PROVIDERS: ATTEND Nurse Practitioner
DX: S99.812A Other specified injuries of left ankle, initial encounter (principal)

== ENCOUNTER 2021-09-28 13:01 | Outpatient (CLI) | payer MEDICAID | END 2021-09-28 13:02 | disposition home or self-care (01) | LOC: MAC.MOP 13:01 | PROVIDERS: ATTEND Nurse Practitioner | DX: R00.2 Palpitations (principal) | CPT/HCPCS: 93246 ==

== ENCOUNTER 2021-10-13 09:00 | Outpatient (CLI) | payer MEDICAID | END 2021-10-13 09:01 | disposition home or self-care (01) | LOC: MAC.MOP 09:00 | PROVIDERS: ATTEND Nurse Practitioner | DX: R00.0 Tachycardia, unspecified (principal); I49.8 Other specified cardiac arrhythmias; I49.1 Atrial premature depolarization; I49.3 Ventricular premature depolarization | CPT/HCPCS: 93244 ==

== ENCOUNTER 2021-10-17 08:56 | Outpatient (CLI) | payer MEDICAID ==
--- NOTE | 2021-10-17 16:41 | XRAY Report ---
PROCEDURE: Ankle 3 View LT INDICATIONS: ANKLE PAIN TECHNIQUE: 3 views of the ankle were acquired. COMPARISON: None FINDINGS: Bones: No fractures or dislocations. Ankle mortise is normally aligned. No suspicious bony lesions . Soft tissues: No tibiotalar joint effusion. Achilles tendon appears normal. IMPRESSION: Normal left ankle Reviewed by: Natalio Castillo on 10/17/2021 4:40 PM PDT Approved by: Natalio Castillo on 10/17/2021 4:40 PM PDT Station ID: [id number]
== END 2021-10-17 23:59 | disposition home or self-care (01) ==
LOC: DI.WOS 08:56
PROVIDERS: ATTEND Orthopaedic Surgery
DX: M25.572 Pain in left ankle and joints of left foot (principal)

== ENCOUNTER 2024-02-13 08:00 | Outpatient (CLI) | payer MEDICAID ==
[2024-02-13 18:04] LABS: BILIRUBIN,URINE NEGATIVE (NEGATIVE); GLUCOSE, URINE (UA) NEGATIVE (NEGATIVE); KETONES,URINE (UA) NEGATIVE (NEGATIVE); LEUKOCYTE ESTERASE, URINE NEGATIVE (NEGATIVE); NITRITE,URINE NEGATIVE (NEGATIVE); OCCULT BLOOD,URINE TRACE-INTA (NEGATIVE); PH,URINE 5.5 PH (5.0-7.5); PROTEIN,URINE NEGATIVE (NEGATIVE); UROBILINOGEN,URINE 0.2 (NORMAL) E.U./dL (NORMAL)
[2024-02-13 18:10] LABS: CLARITY,URINE CLEAR (CLEAR)
[2024-02-13 18:17] LABS: BACTERIA,URINE Few /HPF (None Seen); RBC,URINE 0-5 /HPF (0-5); SQUAMOUS EPITHELIAL CELL,UR FEW Squamous (<= Few); WBC,URINE 0-3 /HPF (0-5)
== END 2024-02-13 23:59 | disposition home or self-care (01) ==
LOC: LAB.WC 08:00
PROVIDERS: ATTEND Obstetrics & Gynecology
DX: Z34.80 Encounter for supervision of other normal pregnancy, unspecified trimester (principal)
CPT/HCPCS: 81001; 87086

== ENCOUNTER 2024-02-29 10:15 | Outpatient (CLI) | payer MEDICAID ==
--- NOTE | 2024-03-01 21:08 | Ultrasound Report ---
PROCEDURE: OB 1st Trimester INDICATIONS: POSTITIVE TEST OUTSIDE/PRIOR DATING DATA: Last menstrual period (LMP): 11/24/2023. LMP-based estimated date of delivery (SRAVANTHI): 08/30/2024. First dating scan (date and location): 02/29/2024. Estimated date of delivery (SRAVANTHI) from first dating scan: 09/12/2024. TECHNIQUE: Real-time scanning was performed of the fetus and maternal pelvic organs, with image documentation. COMPARISON: None. FINDINGS: Intrauterine gestational sac present. Embryo: Arthur-rump length measures 5.38 cm, estimated gestational age is 12 weeks, 0 day. Heart rate: 166 bpm. Other: Small subchorionic hemorrhage is seen measures 1.4 x 1.9 x 0.8 cm in size. Cervix is closed an d measures 4.3 cm in length. Measurement variability in dating: +/- 4 weeks by LMP, +/- 7 days by mean sac diameter (use before 6 weeks gestation if crown-rump length not able to be measured), +/- 5 days by crown-rump length (6-12 weeks gestation). Maternal organs: 2 cystic foci are noted in left ovary measures 3.5 x 3.4 x 3.4 cm in size and 1.7 x 1.6 x 1.9 cm in size. IMPRESSION: 1. Single live intrauterine gestation with fetus seen. Estimated gestational age is 12 weeks, 0 day. heart rate is 166 bpm. 2. Small subchorionic hemorrhage as above. 3. 2 simple appearing cysts are noted in left ovary. No solid-appearing ovarian lesion. No adnexal ma ss. Reviewed by: Candido Vasquez MD on 03/01/2024 9:06 PM PDT Approved by: Candido Vasquez MD on 03/01/2024 9:06 PM PDT Station ID: [id number]
== END 2024-02-29 10:16 | disposition home or self-care (01) ==
LOC: DI 10:15
PROVIDERS: ATTEND Obstetrics & Gynecology
DX: O20.8 Other hemorrhage in early pregnancy (principal); O34.81 Maternal care for other abnormalities of pelvic organs, first trimester; N83.202 Unspecified ovarian cyst, left side; Z3A.12 12 weeks gestation of pregnancy

== ENCOUNTER 2024-03-05 18:45 | Outpatient (CLI) | payer MEDICAID ==
[2024-03-05 19:12] LABS: BASOPHILS % (AUTO) 0.4 %; EOSINOPHILS # (AUTO) 0.4 10^3/uL (0.0-0.7); EOSINOPHILS % (AUTO) 3.8 %; LYMPHOCYTES # (AUTO) 2.4 10^3/uL (1.5-3.5); LYMPHOCYTES % (AUTO) 21.2 %; MEAN CORPUSCULAR HEMOGLOBIN 30.1 pg (27.0-31.0); MEAN CORPUSCULAR HGB CONC 34.2 g/dL (32.0-36.0); MEAN PLATELET VOLUME 9.7 fL (7.9-10.8); MONOCYTES # (AUTO) 0.6 10^3/uL (0.0-1.0); MONOCYTES % (AUTO) 5.5 %; NEUTROPHILS # (AUTO) 7.7 10^3/uL (1.5-6.6); NEUTROPHILS % (AUTO) 68.6 %; PLT - PLATELET COUNT 374 10^3/uL (130-450); RED BLOOD COUNT 4.32 10^6/uL (4.20-5.40); RED CELL DISTRIBUTION WIDTH 12.7 % (12.0-15.0); WHITE BLOOD COUNT 11.2 x10^3/uL (4.8-10.8)
[2024-03-05 19:26] LABS: ALBUMIN 3.8 g/dL (3.2-5.5); ALBUMIN/GLOBULIN RATIO 1.3 (1.0-2.2); BILIRUBIN,TOTAL 0.2 mg/dL (0.2-1.0); CALCIUM 9.7 mg/dL (8.5-10.3); CREATININE 0.5 mg/dL (0.6-1.3); POTASSIUM 3.5 mmol/L (3.5-4.5); TOTAL PROTEIN 6.8 g/dL (6.4-8.9)
[2024-03-05 19:30] LABS: CREATININE,URINE 161.2 mg/dL; PROTEIN/CREATININE RATIO,URINE 0.1 (<=0.2)
[2024-03-05 20:39] LABS: ESTIMATED AVERAGE GLUCOSE 97 mg/dL (70-100)
== END 2024-03-05 18:46 | disposition home or self-care (01) ==
LOC: LAB 18:45
PROVIDERS: ATTEND Obstetrics & Gynecology
DX: Z34.80 Encounter for supervision of other normal pregnancy, unspecified trimester (principal)
CPT/HCPCS: 36415; 80053; 82570; 83036; 84156; 85025; 86592; 86762; 86787; 86803; 86850; 86900; 86901; 87340; 87389

== ENCOUNTER 2024-09-05 08:22 | Inpatient (IN) ==
[2024-09-05] MEDS ORDERED: OXYTOCIN 10 UNIT/ML VIAL IM PRN (09:05)
[2024-09-05] MEDS ORDERED: NIFEdipine 10 MG CAPSULE PO PRN (09:05)
[2024-09-05] MEDS ORDERED: hydrALAZINE INJ 20 MG/ML VIAL IVP PRN ×2 (09:05)
[2024-09-05] MEDS ORDERED: LACTATED RINGERS 1,000 ML IV PRN (09:05)
[2024-09-05] MEDS ORDERED: METHYLERGONOVINE 0.2 MG/ML VIAL IM PRN (09:05)
[2024-09-05] MEDS ORDERED: CARBOPROST TROMETHAMINE 250 MCG/ML VIAL IM PRN (09:05)
[2024-09-05] MEDS ORDERED: OXYTOCIN/SODIUM CHLORIDE 500 ML IV PRN (09:05)
[2024-09-05] MEDS ORDERED: LABETALOL 20 MG/4 ML SYRINGE IVP PRN ×3 (09:05)
[2024-09-05] MEDS ORDERED: lidocaine 1% 20 ML MDV ID PRN (09:05)
[2024-09-05] MEDS ORDERED: miSOPROStoL 100 MCG TABLET VG SCH (10:00)
--- NOTE | 2024-09-05 10:00 | HISTORY & PHYSICAL EXAMINATION ---
Admit History Smoking Status: Current every day smoker Other Maternal History Other Maternal History: Patient is a 33-year-old G3, P1 at 39 weeks 0 days gestation presenting for induction of labor at term. She has good movement. Denies loss of fluid. No BRIDGES/BV or RUQP. No vaginal bleeding. Denies nausea and vomiting. Denies urinary urgency or dysuria. All other symptoms reviewed and were negative except per HPI. Course Tobacco abuse: 1 pack/day down to 3 cigarettes/day Mild range BP x 2 at triage visit on 08/22 Obesity class III: Preparing to BMI of 42: Recalculated at 28-week visit, as multiple heights listed in chart. Discussed BMI limit, and weight expecctations. [place] liklihood of [place]. -EFW at 32 and 36 weeks. 99%ile. 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 Has not had any genital outbreaks, only oral. Does think she wants prophylaxis at 36 weeks. LMP: 11/24/2023 SRAVANTHI by LMP: 08/30/2024 Initial US Date 02/29/2024, US Age 12 weeks 0 days, SRAVANTHI by ultrasound: 09/12/2024 Final SRAVANTHI: 09/12/2024 by 12-week ultrasound Pre- Weight:253 BMI: 42 Blood type: O+ Antibody: negative CBC: PLT 374 HCT 38 HGB 13.0 RUB: immune VZV: immune HBsAg: neg HepC: NR RPR/AB-EIA: NR HIV: NR PAP: 10/09/21 normal, HPV neg GC/CT: neg HSV: reports a serum HSV2 but no cold sores or genital herpes Genetic testing: [id number] negative Covid: 04/20/24 Flu: 04/26/24 FAS: 04/27/24 Placenta: posterior without previa Cord: 3VC SHARRI: WNL EFW: >99% 50gm OGCT: 119 3HR GTT: TDAP: 04/26/24 in ER Breast Pump: given Antibody screen: 3rd trimester PLT 342 HCT 31.8 HGB 10.5 GBS: 08/07-POSITIVE Meds/Allgy Home Medications Ambulatory Orders Medication Instructions Recorded Confirmed vitamins no.154-ferrous 1 tab PO QDAY #90 tabs 05/22/24 08/26/24 fumarate 27 mg-folic acid 1 mg tablet omeprazole 20 mg capsule,delayed 20 mg PO QDAY #30 caps 06/26/24 08/26/24 release acyclovir 400 mg tablet 400 mg PO TID 45 days #135 tabs 08/06/24 08/26/24 ferrous sulfate 325 mg (65 mg 325 mg PO QDAY #90 tabs 08/13/24 08/26/24 iron) tablet,delayed release Allergies Allergies Allergy/AdvReac Type Severity Reaction Status Date / Time blueberries Allergy Severe Anaphylaxis Uncoded 05/02/24 16:42 CHLORHEXIDINE GLUCONATE AdvReac Intermediate Hives Uncoded 05/02/24 16:42 PFSH Active Problems All Active Problems (Updated 09/05/24 @ 19:03 by Christiano Morales MD) Tobacco abuse (Acute) 39 weeks gestation of (Acute) Morbid obesity with body mass index of 45.0-49.9 in adult (Acute) Anemia (Acute 12/22/18) GBS (group B Streptococcus carrier), +RV culture, currently (Acute) Excessive weight gain during (Acute) Supervision of high risk in third trimester (Acute) Obesity affecting (Acute) HSV (herpes simplex virus) infection (Acute) Anxiety (Acute) Pelvic pain (Acute) Gastro-esophageal reflux (Acute) Medical History Medical History (Updated 09/05/24 @ 19:03 by Christiano Morales MD) False labor Trigeminal neuralgia Back pain Sprain of left wrist Ankle sprain Abdominal wall abscess Postoperative wound dehiscence Urinary tract infection Upper respiratory infection Pyelonephritis Vitamin D deficiency (02/06/16) Tonsillitis (08/14/16) Tobacco dependence (02/06/16) Staph aureus infection (10/09/21) Snoring (01/25/20) Morbid obesity (10/01/17) Low back pain (09/20/20) Leukocytosis (02/28/16) Inguinal hernia, left (09/12/15) Eustachian tube dysfunction (02/17/16) Carpal tunnel syndrome, left (02/17/16) Anxiety associated with depression (02/17/16) Acute bronchitis (08/06/19) Surgical History Surgical History (Updated 08/13/24 @ 15:01 by Anabell Mills MD) [place] teeth extracted H/O hernia repair left inguinal hernia repair laparoscopic, converted to open with post op abscess and umbilical hernia. Social History Social History Smoking Status: Current every day smoker Number of Years Smoked: 13 How many cigarettes a day do you smoke? (20 cigarettes=1 Pk): 3 Do you dip or chew tobacco?: No Do you vape?: No Patient requests smoking cessation consult: No Initiate information on smoking cessation: No Living arrangement: At home Relationship: Do you feel safe in your home environment?: Yes Suffered physical, verbal, emotional, or financial abuse?: No History of Abuse: No ETOH Use: None Frequency: Occasional Substance Use: denies use Are you sexually active?: Yes POLST Patient has POLST: No Review of Systems Status of ROS: 10 or more systems reviewed and unremarkable except as noted in history and below Physical Other Notes Labor Progress Note/Additional Text: General: Alert, oriented, no acute distress Head: Normal cephalic atraumatic Eyes: PERRLA, extraocular motions intact. Respiratory: Normal rate of respiration. No accessory muscle use, normal respiratory effort. Cardiovascular: Regular rate and rhythm Abdomen: Gravid, nontender, nondistended Extremities: Normal range of motion Neuro: Oriented x3. Normal movements Psych: Appropriate mood and affect. Normal judgment and insight SVE: 140 bpm baseline, moderate variability, accelerations present, no decelerations. FHT: [ ] [place]: [ ] Plan for Labor Plan For Labor I expect patient to be DC'd or transferred within 96 hours.: Yes Conclusion/Plan Problem List (1) 39 weeks gestation of : Plan: Admit to L&D, admit labs, epidural at patient's request. Start with cervical ripening, misoprostol 25 mcg vaginally. Counseled on the risk, benefits, alternatives of induction of labor including the risk of intolerance, bleeding, infection, risk of section, risk of assisted vaginal delivery, failed induction as well as other aspects. Discussed the risks and benefits of medical versus mechanical cervical ripening and desires to proceed with medical ripening. (2) GBS (group B Streptococcus carrier), +RV culture, currently : Plan: Will start GBS sepsis prophylaxis this evening. (3) Excessive weight gain during : Plan: BMI 50.0 at last visit. (4) Morbid obesity with body mass index of 45.0-49.9 in adult: Plan: BMI 50.0 at last visit. (5) Supervision of high risk in third trimester: Plan: As above (6) Obesity affecting : Plan: BMI 50.0 at last visit. (7) HSV (herpes simplex virus) infection: Plan: Has been on prophylaxis therapy. No genital outbreaks. Only positive by serology (8) Tobacco abuse: Plan: Encouraged to quit smoking. Wants to use gum while here as she does not tolerate patches. Lab Results 09/05/24 09:50 09/05/24 10:42
[2024-09-05 10:10] LABS: BASOPHILS % (AUTO) 0.4 %; EOSINOPHILS # (AUTO) 0.2 10^3/uL (0.0-0.7); EOSINOPHILS % (AUTO) 1.3 %; HCT - HEMATOCRIT 35.7 % (37.0-47.0); HGB - HEMOGLOBIN 11.7 g/dL (12.0-16.0); LYMPHOCYTES # (AUTO) 2.1 10^3/uL (1.5-3.5); LYMPHOCYTES % (AUTO) 18.4 %; MEAN CORPUSCULAR HEMOGLOBIN 28.9 pg (27.0-31.0); MEAN CORPUSCULAR HGB CONC 32.8 g/dL (32.0-36.0); MEAN CORPUSCULAR VOLUME 88.1 fL (81.0-99.0); MEAN PLATELET VOLUME 10.7 fL (7.9-10.8); MONOCYTES # (AUTO) 0.5 10^3/uL (0.0-1.0); MONOCYTES % (AUTO) 4.5 %; NEUTROPHILS # (AUTO) 8.5 10^3/uL (1.5-6.6); NEUTROPHILS % (AUTO) 74.7 %; PLT - PLATELET COUNT 399 10^3/uL (130-450); RED BLOOD COUNT 4.05 10^6/uL (4.20-5.40); RED CELL DISTRIBUTION WIDTH 14.6 % (12.0-15.0); WHITE BLOOD COUNT 11.4 x10^3/uL (4.8-10.8)
[2024-09-05] MEDS: miSOPROStoL 100 MCG TABLET VG SCH (11:12)
[2024-09-05 11:17] LABS: BILIRUBIN,TOTAL 0.3 mg/dL (0.2-1.0); CALCIUM 8.3 mg/dL (8.5-10.3); CREATININE 0.6 mg/dL (0.6-1.3); POTASSIUM 3.4 mmol/L (3.5-4.5); TOTAL PROTEIN 5.9 g/dL (6.4-8.9)
[2024-09-05 12:24] LABS: CREATININE,URINE 163.3 mg/dL; PROTEIN/CREATININE RATIO,URINE 0.1 (<=0.2)
[2024-09-05] MEDS: AMPICILLIN 2 GM in SODIUM CHLORIDE 0.9% MINIBAG 100 ML IV ONE (19:34)
[2024-09-05] MEDS: LACTATED RINGERS 1,000 ML IV PRN (19:36)
[2024-09-06] MEDS: AMPICILLIN 1 GM in SODIUM CHLORIDE 0.9% MINIBAG 100 ML IV SCH (00:04)
[2024-09-06] MEDS ORDERED: ROPIVACAINE 0.2% 200 MG/100 ML BAG EP ONE (05:50)
[2024-09-06] MEDS ORDERED: LIDOCAINE 2%-EPI 1:100000 20 ML MDV ONE ×2 (05:52→08:30)
[2024-09-06] MEDS ORDERED: ePHEDrine 50 MG/ML VIAL IVP PRN (06:34)
[2024-09-06] MEDS ORDERED: NALBUPHINE 10 MG/ML AMP IVP PRN (06:34)
[2024-09-06] MEDS ORDERED: diphenhydrAMINE INJ 50 MG/ML VIAL IVP PRN (06:34)
[2024-09-06] MEDS ORDERED: ROPIVACAINE 0.2% 200 MG/100 ML BAG EP PRN (06:34)
[2024-09-06] MEDS ORDERED: LACTATED RINGERS 500 ML IV ONE (06:34)
[2024-09-06] MEDS ORDERED: NALOXONE 0.4 MG/ML VIAL IVP PRN (06:34)
[2024-09-06] MEDS ORDERED: METOCLOPRAMIDE 10 MG/2 ML VIAL IVP PRN (06:34)
[2024-09-06] MEDS ORDERED: ONDANSETRON 4 MG/2 ML VIAL IVP PRN (06:34)
--- NOTE | 2024-09-06 06:37 | ANESTHESIA PROCEDURE NOTE ---
Pre-Anesthesia VS, & Labs Diagnosis Surgical Diagnosis:: labor pain Procedure Procedure: epidural Vitals Vital Signs: Temp Pulse Resp BP Pulse Ox 36.6 C 95 18 138/84 H 96 09/05/24 15:23 09/05/24 15:23 09/05/24 15:23 09/05/24 15:23 09/05/24 15:23 NPO NPO: >8 hours Last Fluid Intake: t/o night Is Patient ?: Yes Lab Results Current Lab Results: Laboratory Tests 09/05/24 10:42: Sodium 133 L, Potassium 3.4 L, Chloride 103, Carbon Dioxide 21, Anion Gap 9.0, BUN 9, Creatinine 0.6, Estimated GFR (MDRD) 114, Glucose 153 H, C alcium 8.3 L, Total Bilirubin 0.3, AST 12, ALT 10, Alkaline Phosphatase 169 H, T otal Protein 5.9 L, Albumin 3.0 L, Globulin 2.9, Albumin/Globulin Ratio 1.0 09/05/24 10:27: Blood Type O POSITIVE, Antibody Screen NEGATIVE 09/05/24 09:50: WBC 11.4 H, RBC 4.05 L, Hgb 11.7 L, Hct 35.7 L, MCV 88.1, MCH 28.9, MCHC 32.8, RDW 14.6, Plt Count 399, MPV 10.7, Neut # (Auto) 8.5 H, Lymph # (Auto) 2.1, [place] # (Auto) 0.5, Eos # (Auto) 0.2, Baso # (Auto) 0.0, Absolute Nucleated RBC 0.00, Nucleated RBC % 0.0 09/05/24 09:50 09/05/24 10:42 Meds/Allgy Home Medications Ambulatory Orders Medication Instructions Recorded Confirmed vitamins no.154-ferrous 1 tab PO QDAY #90 tabs 05/22/24 08/26/24 fumarate 27 mg-folic acid 1 mg tablet omeprazole 20 mg capsule,delayed 20 mg PO QDAY #30 caps 06/26/24 08/26/24 release acyclovir 400 mg tablet 400 mg PO TID 45 days #135 tabs 08/06/24 08/26/24 ferrous sulfate 325 mg (65 mg 325 mg PO QDAY #90 tabs 08/13/24 08/26/24 iron) tablet,delayed release Allergies Allergies Allergy/AdvReac Type Severity Reaction Status Date / Time blueberries Allergy Severe Anaphylaxis Uncoded 05/02/24 16:42 CHLORHEXIDINE GLUCONATE AdvReac Intermediate Hives Uncoded 05/02/24 16:42 PFSH Active Problems All Active Problems (Updated 09/05/24 @ 19:18 by Christiano Morales MD) Gestational hypertension (Acute) Tobacco abuse (Acute) 39 weeks gestation of (Acute) Anemia (Acute 12/22/18) Morbid obesity with body mass index of 45.0-49.9 in adult (Acute) GBS (group B Streptococcus carrier), +RV culture, currently (Acute) Excessive weight gain during (Acute) Supervision of high risk in third trimester (Acute) Obesity affecting (Acute) HSV (herpes simplex virus) infection (Acute) Anxiety (Acute) Pelvic pain (Acute) Gastro-esophageal reflux (Acute) Medical History Medical History (Updated 09/05/24 @ 19:18 by Christiano Morales MD) False labor Trigeminal neuralgia Pyelonephritis Upper respiratory infection Urinary tract infection Postoperative wound dehiscence Abdominal wall abscess Ankle sprain Sprain of left wrist Back pain Vitamin D deficiency (02/06/16) Tonsillitis (08/14/16) Tobacco dependence (02/06/16) Staph aureus infection (10/09/21) Snoring (01/25/20) Morbid obesity (10/01/17) Low back pain (09/20/20) Leukocytosis (02/28/16) Inguinal hernia, left (09/12/15) Eustachian tube dysfunction (02/17/16) Carpal tunnel syndrome, left (02/17/16) Anxiety associated with depression (02/17/16) Acute bronchitis (08/06/19) Surgical History Surgical History (Updated 08/13/24 @ 15:01 by Anabell Mills MD) [place] teeth extracted H/O hernia repair left inguinal hernia repair laparoscopic, converted to open with post op abscess and umbilical hernia. Social History Social History Smoking Status: Current every day smoker Number of Years Smoked: 13 How many cigarettes a day do you smoke? (20 cigarettes=1 Pk): 3 Do you dip or chew tobacco?: No Do you vape?: No Patient requests smoking cessation consult: No Initiate information on smoking cessation: No Living arrangement: At home Relationship: Do you feel safe in your home environment?: Yes Suffered physical, verbal, emotional, or financial abuse?: No History of Abuse: No ETOH Use: None Frequency: Occasional Substance Use: denies use Are you sexually active?: Yes POLST Patient has POLST: No Anesthesia Exam (Expanded) Exam General: Alert, Oriented x3, Cooperative and Mild distress Dental: WNL Mouth Openin Fingerbreadth Mallampati classification: II Thyromental Distance: 4-6 cm Respiratory: No respiratory distress Cardiovascular: Regular rate Neurological: Normal speech Mental/Cognitive Status: Alert/Oriented X3 and Normal for patient Cognitive Status: Within normal limits Plan Problem List (1) 39 weeks gestation of : Plan: Admit to L&D, admit labs, epidural at patient's request. Start with cervical ripening, misoprostol 25 mcg vaginally. Counseled on the risk, benefits, alternatives of induction of labor including the risk of intolerance, bleeding, infection, risk of section, risk of assisted vaginal delivery, failed induction as well as other aspects. Discussed the risks and benefits of medical versus mechanical cervical ripening and desires to proceed with medical ripening. (2) GBS (group B Streptococcus carrier), +RV culture, currently : Plan: Will start GBS sepsis prophylaxis this evening. (3) Excessive weight gain during : Plan: BMI 50.0 at last visit. (4) Morbid obesity with body mass index of 45.0-49.9 in adult: Plan: BMI 50.0 at last visit. (5) Supervision of high risk in third trimester: Plan: As above (6) Obesity affecting : Plan: BMI 50.0 at last visit. (7) HSV (herpes simplex virus) infection: Plan: Has been on prophylaxis therapy. No genital outbreaks. Only positive by serology (8) Tobacco abuse: Plan: Encouraged to quit smoking. Wants to use gum while here as she does not tolerate patches. Plan Anesthesia Type: Epidural (difficulty with last epidural, states she has lumbar malformation) Consent for Procedure(s) Verified and Reviewed: Yes Code Status: Attempt Resuscitation ASA Classification ASA classification: 3-Severe systemic disease Is this case an emergency?: No
[2024-09-06] MEDS ORDERED: fentaNYL 100 MCG/2 ML VIAL ONE (08:08)
--- NOTE | 2024-09-06 08:50 | ANESTHESIA PROCEDURE NOTE ---
Anesthesia Epidural Template Patient Report Patient Reports: positive Inadequate control (Previously placed epidural is non-functional.) Plan Plan: positive Other (Will replace epidural) Other Comments Other Comments: Patient's previously placed epidural removed. Skin prepped with betadinex3. 3ml of 1%lidocaine used for skin localization at L3-L4. 17G tuohy needle was inserted with RIC at 9cm. 25G michael needle inserted with return of CSF. 20mcg fentanyl injected intrathecal. Flexible catheter inserted and advanced with ease to 14cm. Negative test dose of 2% lidocaine with epi 5ml given. Programmed intermittent epidural bolus resumed at 10ml q 50 mins. Patient reports contractions improved. See Nurse's notes for vital signs. Epidural Discontinuation Epidural D/C Discontinued: positive Epidural d/c (previously placed epidural removed with tip intact) and Tip intact
[2024-09-06] MEDS: OXYTOCIN/SODIUM CHLORIDE 500 ML IV SCH (09:58)
--- NOTE | 2024-09-06 12:26 | PROVIDER PROGRESS NOTE ---
Labor Progress Note Uterine Monitoring Uterine Monitoring Mode: positive External toco Contraction Frequency (min/apart): 2 Contraction Intensity: positive Moderate to strong Uterine Resting Tone: positive Soft Monitoring Monitor Mode: positive External ultrasound Heart Rate Baseline: 140 Heart Rate Variability: positive Moderate (6-25 bmp) Accelerations: positive Present, 15x15 Decelerations: positive None Strip Review: positive Category I Vaginal Exam Dilation (in cm): 6 Effacement (%): 100 Station: -2 (Planned for AROM but SROM occurred maybe ~1000 after last SVE (intact at that time). Also Diallo catheter out of place, deflated. Diallo catheter replaced without difficulty, urethra without signs of injury) Labor Progress Note Labor Progress Note/Additional Text: 33yo at 39w admitted for IOL for GHTN - SROM ~1000 - Anticipate
[2024-09-06] MEDS ORDERED: SIMETHICONE CHEW 80 MG TABLET PO PRN (13:18)
--- OUTSIDE RECORDS SUMMARY | 2024-09-06 13:18 | EXTERNAL MEDICAL SUMMARY RPT | Continuity of Care Document ---
Author Organization [facility] Address [address] [place] [id number] Phone Problems date description facility 2024-06-16 08:19 Supervision of high risk , unspecified, second trimester [facility] 2024-06-16 08:19 Obesity complicating , unspecified trimester [facility] 2024-06-16 08:20 Supervision of high risk , unspecified, second trimester [facility] 2024-06-16 08:20 Obesity complicating , unspecified trimester [facility] 2024-06-22 15:02 Supervision of high risk , unspecified, second trimester [facility] 2024-06-22 15:02 Encounter for superv ision of normal , unspecified, unspecified trimester [facility] 2024-06-23 00:04 Supervision of high risk , unspecified, second trimester [facility] 2024-06-23 00:04 Encounter for superv ision of normal , unspecified, unspecified trimester [facility] 2024-06-23 08:16 Supervision of high risk , unspecified, second trimester [facility] 2024-06-23 08:16 Encounter for superv ision of normal , unspecified, unspecified trimester [facility] 2024-06-23 12:55 Supervision of high risk , unspecified, second trimester [facility] 2024-06-23 13:09 Supervision of high risk , unspecified, second trimester [facility] 2024-06-23 13:09 Obesity complicating , unspecified trimester [facility] 2024-06-23 13:09 Encounter for superv ision of normal , unspecified, unspecified trimester [facility] 2024-06-23 13:10 Supervision of high risk , unspecified, second trimester [facility] 2024-06-23 13:10 Obesity complicating , unspecified trimester [facility] 2024-06-23 13:10 Encounter for superv ision of normal , unspecified, unspecified trimester [facility] 2024-06-23 13:14 Supervision of high risk , unspecified, second trimester [facility] 2024-06-23 13:14 Obesity complicating , unspecified trimester [facility] 2024-06-23 13:14 Encounter for superv ision of normal , unspecified, unspecified trimester [facility] 2024-06-23 13:35 Supervision of high risk , unspecified, second trimester [facility] 2024-06-23 13:35 Obesity complicating , unspecified trimester [facility] 2024-06-23 13:35 Encounter for superv ision of normal , unspecified, unspecified trimester [facility] 2024-06-23 13:43 Supervision of high risk , unspecified, second trimester [facility] 2024-06-23 13:43 Obesity complicating , unspecified trimester [facility] 2024-06-23 13:43 Encounter for superv ision of normal , unspecified, unspecified trimester [facility] 2024-06-23 13:44 Supervision of high risk , unspecified, second trimester [facility] 2024-06-23 13:44 Obesity complicating , unspecified trimester [facility] 2024-06-23 13:44 Encounter for superv ision of normal , unspecified, unspecified trimester [facility] 2024-06-23 13:46 Supervision of high risk , unspecified, second trimester [facility] 2024-06-23 13:46 Obesity complicating , unspecified trimester [facility] 2024-06-23 13:46 Encounter for superv ision of normal , unspecified, unspecified trimester [facility] 2024-06-23 13:47 Supervision of high risk , unspecified, second trimester [facility] 2024-06-23 13:47 Obesity complicating , unspecified trimester [facility] 2024-06-23 13:47 Encounter for superv ision of normal , unspecified, unspecified trimester [facility] 2024-06-23 13:56 Supervision of high risk , unspecified, second trimester [facility] 2024-06-23 13:56 Obesity complicating , unspecified trimester [facility] 2024-06-23 13:56 Encounter for superv ision of normal , unspecified, unspecified trimester [facility] 2024-06-23 13:57 Supervision of high risk , unspecified, second trimester [facility] 2024-06-23 13:57 Obesity complicating , unspecified trimester [facility] 2024-06-23 13:57 Encounter for superv ision of normal , unspecified, unspecified trimester [facility] 2024-06-23 15:05 Supervision of high risk , unspecified, second trimester [facility] 2024-06-23 15:05 Obesity complicating , unspecified trimester [facility] 2024-06-24 00:01 Supervision of high risk , unspecified, second trimester [facility] 2024-06-24 00:01 Obesity complicating , unspecified trimester [facility] 2024-06-26 13:20 Supervision of high risk , unspecified, second trimester [facility] 2024-06-26 13:20 Obesity complicating , unspecified trimester [facility] 2024-06-26 13:20 Encounter for superv ision of normal , unspecified, unspecified trimester [facility] 2024-06-26 13:31 Supervision of high risk , unspecified, second trimester [facility] 2024-06-26 13:31 Obesity complicating , unspecified trimester [facility] 2024-06-26 13:31 Encounter for superv ision of normal , unspecified, unspecified trimester [facility] 2024-06-26 13:55 Supervision of high risk , unspecified, second trimester [facility] 2024-06-26 13:55 Obesity complicating , unspecified trimester [facility] 2024-06-26 13:55 Encounter for immunization [facility] 2024-06-26 13:55 Encounter for superv ision of normal , unspecified, unspecified trimester [facility] 2024-06-27 00:01 Supervision of high risk , unspecified, second trimester [facility] 2024-06-27 00:01 Supervision of high risk , unspecified, third trimester [facility] 2024-06-27 00:01 Excessive weight gai n in , unspecified trimester [facility] 2024-06-27 00:01 Obesity complicating , unspecified trimester [facility] 2024-06-27 00:01 Encounter for immunization id [facility] 2024-06-27 00:01 Encounter for superv ision of normal , unspecified, unspecified trimester [facility] 2024-06-29 09:13 Supervision of high risk , unspecified, third trimester [facility] 2024-06-29 09:13 Excessive weight gai n in , unspecified trimester [facility] 2024-06-29 09:13 Obesity complicating , unspecified trimester [facility] 2024-07-22 13:25 Supervision of high risk , unspecified, second trimester [facility] 2024-07-22 13:25 Obesity complicating , unspecified trimester [facility] 2024-07-22 13:25 Encounter for superv ision of normal , unspecified, unspecified trimester [facility] 2024-07-22 13:34 Supervision of high risk , unspecified, second trimester [facility] 2024-07-22 13:34 Obesity complicating , unspecified trimester [facility] 2024-07-22 13:34 Encounter for superv ision of normal , unspecified, unspecified trimester [facility] 2024-07-22 14:04 Supervision of high risk , unspecified, third trimester [facility] 2024-07-22 14:04 Excessive weight gai n in , unspecified trimester [facility] 2024-07-22 14:04 Obesity complicating , unspecified trimester [facility] 2024-07-22 14:10 Supervision of high risk , unspecified, third trimester [facility] 2024-07-22 14:10 Excessive weight gai n in , unspecified trimester [facility] 2024-07-22 14:10 Obesity complicating , unspecified trimester [facility] 2024-07-22 15:53 Supervision of high risk , unspecified, second trimester [facility] 2024-07-22 15:53 Obesity complicating , unspecified trimester [facility] 2024-07-22 15:53 Encounter for superv ision of normal , unspecified, unspecified trimester [facility] 2024-07-23 07:30 Supervision of high risk , unspecified, third trimester [facility] 2024-07-23 07:30 Excessive weight gai n in , unspecified trimester [facility] 2024-07-23 07:30 Obesity complicating , unspecified trimester [facility] 2024-07-24 00:01 Supervision of high risk , unspecified, third trimester [facility] 2024-07-24 00:01 Excessive weight gai n in , unspecified trimester [facility] 2024-07-24 00:01 Obesity complicating , unspecified trimester [facility] 2024-07-28 11:06 Supervision of high risk , unspecified, third trimester [facility] 2024-07-31 15:43 Supervision of high risk , unspecified, second trimester [facility] 2024-07-31 15:43 Obesity complicating , unspecified trimester [facility] 2024-07-31 15:43 Encounter for superv ision of normal , unspecified, unspecified trimester [facility] 2024-07-31 15:45 Supervision of high risk , unspecified, second trimester [facility] 2024-07-31 15:45 Obesity complicating , unspecified trimester [facility] 2024-07-31 15:45 Encounter for superv ision of normal , unspecified, unspecified trimester [facility] 2024-08-04 09:46 Supervision of high risk , unspecified, second trimester [facility] 2024-08-04 09:46 Obesity complicating , unspecified trimester [facility] 2024-08-04 09:46 Encounter for superv ision of normal , unspecified, unspecified trimester [facility] 2024-08-05 15:31 Supervision of high risk , unspecified, second trimester [facility] 2024-08-05 15:31 Obesity complicating , unspecified trimester [facility] 2024-08-05 15:31 Encounter for superv ision of normal , unspecified, unspecified trimester [facility] 2024-08-05 15:42 Supervision of high risk , unspecified, second trimester [facility] 2024-08-05 15:42 Obesity complicating , unspecified trimester [facility] 2024-08-05 15:42 Encounter for superv ision of normal , unspecified, unspecified trimester [facility] 2024-08-06 11:08 Supervision of high risk , unspecified, second trimester [facility] 2024-08-06 11:08 Obesity complicating , unspecified trimester [facility] 2024-08-06 11:08 Encounter for superv ision of normal , unspecified, unspecified trimester [facility] 2024-08-06 11:45 Supervision of high risk , unspecified, second trimester [facility] 2024-08-06 11:45 Obesity complicating , unspecified trimester [facility] 2024-08-06 11:45 Encounter for superv ision of normal , unspecified, unspecified trimester [facility] 2024-08-06 12:34 Encounter for screeni ng for Streptococcus B [facility] 2024-08-06 12:38 Other specified noninflammatory disorders of vagina [facility] 2024-08-06 12:38 Encounter for screeni ng for Streptococcus B [facility] 2024-08-06 13:10 Other specified noninflammatory disorders of vagina [facility] 2024-08-06 13:10 Supervision of high risk , unspecified, second trimester [facility] 2024-08-06 13:10 Obesity complicating , unspecified trimester [facility] 2024-08-06 13:10 Encounter for superv ision of normal , unspecified, unspecified trimester [facility] 2024-08-06 13:10 Encounter for screeni ng for Streptococcus B [facility] 2024-08-06 13:24 Supervision of high risk , unspecified, second trimester [facility] 2024-08-06 13:24 Obesity complicating , unspecified trimester [facility] 2024-08-06 13:24 Encounter for superv ision of normal , unspecified, unspecified trimester [facility] 2024-08-06 13:25 Supervision of high risk , unspecified, second trimester [facility] 2024-08-06 13:25 Obesity complicating , unspecified trimester [facility] 2024-08-06 13:25 Encounter for superv ision of normal , unspecified, unspecified trimester [facility] 2024-08-06 13:26 Supervision of high risk , unspecified, second trimester [facility] 2024-08-06 13:26 Obesity complicating , unspecified trimester [facility] 2024-08-06 13:26 Encounter for superv ision of normal , unspecified, unspecified trimester [facility] 2024-08-06 13:27 Supervision of high risk , unspecified, second trimester [facility] 2024-08-06 13:27 Obesity complicating , unspecified trimester [facility] 2024-08-06 13:27 Encounter for superv ision of normal , unspecified, unspecified trimester [facility] 2024-08-07 00:04 Other specified noninflammatory disorders of vagina [facility] 2024-08-07 00:04 Encounter for screeni ng for Streptococcus B [facility] 2024-08-10 12:51 Encounter for screeni ng for Streptococcus B [facility] 2024-08-13 09:01 Supervision of high risk , unspecified, second trimester [facility] 2024-08-13 09:01 Obesity complicating , unspecified trimester [facility] 2024-08-13 09:01 Encounter for superv ision of normal , unspecified, unspecified trimester [facility] 2024-08-13 13:49 Body mass index [BMI] 40.0-44.9 , adult [facility] 2024-08-13 15:04 Body mass index [BMI] 40.0-44.9 , adult [facility] 2024-08-18 13:52 Obesity complicating , third trimester [employer] 2024-08-19 13:31 False labor before 3 7 completed weeks of gestation, third trimester [employer] [facility] 2024-08-20 06:07 Obesity complicating , third trimester [employer] [facility] 2024-08-24 11:11 Maternal care for ab normalities of the heart rate or rhythm, third trimester, not applicable or unspecified [employer] [facility] 2024-08-25 07:35 Maternal care for ab normalities of the heart rate or rhythm, third trimester, not applicable or unspecified [employer] [facility] 2024-08-25 07:36 Maternal care for ab normalities of the heart rate or rhythm, third trimester, not applicable or unspecified [employer] [facility] 2024-08-25 11:26 Supervision of high risk , unspecified, second trimester [employer] [facility] 2024-08-25 11:26 Obesity complicating , unspecified trimester [employer] 2024-08-25 11:26 Encounter for superv ision of normal , unspecified, unspecified trimester [employer] 2024-08-26 10:25 Morbid (severe) obesity due to excess calories [employer] 2024-08-26 10:25 Supervision of high risk , unspecified, third trimester [employer] [facility] 2024-08-26 10:25 Obesity complicating , unspecified trimester [employer] [facility] 2024-08-26 10:25 Body mass index [BMI] 45.0-49.9 , adult [employer] 2024-08-26 13:53 Supervision of high risk , unspecified, third trimester [employer] 2024-08-26 14:21 Supervision of high risk , unspecified, third trimester [employer] 2024-08-27 00:04 Supervision of high risk , unspecified, third trimester [employer] 2024-08-28 15:08 False labor at or af ter 37 completed weeks of gestation [employer] 2024-08-31 13:18 Supervision of high risk , unspecified, second trimester [facility] 2024-08-31 13:18 Obesity complicating , unspecified trimester [employer] 2024-08-31 13:18 Encounter for superv ision of normal , unspecified, unspecified trimester [employer] [facility] 2024-08-31 13:32 Supervision of high risk , unspecified, second trimester [employer] [facility] 2024-08-31 13:32 Obesity complicating , unspecified trimester [employer] 2024-08-31 13:32 Encounter for superv ision of normal , unspecified, unspecified trimester [employer] 2024-08-31 14:14 Morbid (severe) obesity due to excess calories [employer] 2024-08-31 14:14 Supervision of high risk , unspecified, second trimester [employer] 2024-08-31 14:14 Obesity complicating , unspecified trimester [employer] 2024-08-31 14:14 Encounter for superv ision of normal , unspecified, unspecified trimester [employer] 2024-08-31 14:14 Body mass index [BMI] 45.0-49.9 , adult [employer] 2024-08-31 15:07 Morbid (severe) obesity due to excess calories [employer] 2024-08-31 15:07 Supervision of high risk , unspecified, second trimester [employer] 2024-08-31 15:07 Obesity complicating , unspecified trimester [employer] 2024-08-31 15:07 Encounter for superv ision of normal , unspecified, unspecified trimester [employer] 2024-08-31 15:07 Body mass index [BMI] 45.0-49.9 , adult [employer] 2024-09-05 19:05 Herpesviral infection, unspecif ied [employer] 2024-09-05 19:05 Morbid (severe) obesity due to excess calories [employer] 2024-09-05 19:05 Supervision of high risk , unspecified, third trimester [employer] 2024-09-05 19:05 Excessive weight gai n in , unspecified trimester [employer] 2024-09-05 19:05 Obesity complicating , unspecified trimester [employer] 2024-09-05 19:05 Streptococcus B carrier state c omplicating [facility] 2024-09-05 19:05 39 weeks gestation of [facility] 2024-09-05 19:05 Body mass index [BMI] 45.0-49.9 , adult [facility] 2024-09-05 19:05 Tobacco use [facility] Results/Labs test date facility value unit notes Result panel 1 HGB - [facility]22 [facility] /[facility] (missing) WHITE BLOOD COUNT 2024-06-22 [facility] x[facility] 3/ul (missing) GLUCOSE,1H PP 50GM DOSE 2024-06-22 16:09 [facility] 119 mg/dl Social History date description facility
--- NOTE | 2024-09-06 13:32 | DELIVERY NOTE ---
Delivery Note Labor Labor: positive Induced by oxytocin Infant Delivery Method Infant Delivery Method: positive Spontaneous vaginal delivery Cervical Ripening Method Cervical Ripening Method: positive Misoprostil Presentation Presentation: positive Vertex and PAMELLA - right occiput anterior Nuchal Cord Nuchal Cord: positive None Amniotic Fluid Description Amniotic Fluid Description: positive Clear (SROM, little fluid noted. Light/terminal meconium noted at delivery) Episiotomy Type Episiotomy Type: positive None Laceration Laceration: positive None Delivery Outcome Delivery Date: 09/06/24 Delivery Outcome: positive Livebirth : positive Placed in direct skin contact with mother, Bulb syringe, Stimulated and Wagoner used sex: positive Male Cord Cord: positive 3 vessels Placenta Placenta: positive Intact Estimated Blood Loss Estimated Blood Loss (in cc): 200 Post Delivery Events Post Delivery Events: positive No post delivery events Delivery Comments (Free Text/Narrative) Delivery Comments (Free Text/Narrative): Late deceleration noted. RN checked SVE 10cm with good efforts pushing, +2 station. Head delivered, PAMELLA. Shoulders and body delivered with ease. Male placed on mother's abdomen. Delayed cord clamping. Fundus firm. Placenta delivered spontaneously and intact, 3vc. Vagina and perineum inspected, no lacerations. Hemostasis. Family doing well, bonding at bedside.
--- NOTE | 2024-09-06 14:49 | PHARMACY PROGRESS NOTE ---
Best Possible Medication History Admit Date and Time: 09/06/24 [id number] Home Medications Medication Instructions Recorded Confirmed Type vitamins no.154-ferrous 1 tab PO QDAY #90 tabs 05/22/24 09/06/24 Rx fumarate 27 mg-folic acid 1 mg tablet omeprazole 20 mg capsule,delayed 20 mg PO QDAY #30 caps 06/26/24 09/06/24 Rx release acyclovir 400 mg tablet 400 mg PO TID 45 days #135 tabs 08/06/24 09/06/24 Rx ferrous sulfate 325 mg (65 mg 325 mg PO QDAY #90 tabs 08/13/24 09/06/24 Rx iron) tablet,delayed release Processed by: Pharmacy Medications reviewed in ED?: No Patient Interview: Completed Secondary Source(s): Insurance records [facility] Statement: Per RN interview with patient and review of [facility] insurance records. As the person ultimately responsible for medication therapy, providers are able to order a medication from an existing home medication list in [facility] via the "Reconcile Routine" prior to Confirmation of that medication by sales support manager. Such practice is discouraged except when the physician, in their clinical judgment, deems that a medical need exists for a medication without regard to previous use.
[2024-09-06] MEDS: OXYTOCIN/SODIUM CHLORIDE 500 ML IV PRN (15:20)
[2024-09-06] MEDS: TRANEXAMIC ACID IN NACL 1,000 MG/100 ML BAG IV PRN (16:05)
[2024-09-06] MEDS: miSOPROStoL 200 MCG TABLET BC PRN (16:05)
[2024-09-06] MEDS: ACETAMINOPHEN 500 MG TABLET PO SCH (17:11)
[2024-09-06] MEDS: IBUPROFEN 800 MG TABLET PO SCH (17:11)
[2024-09-06] MEDS: DOCUSATE SODIUM 100 MG CAPSULE PO SCH (21:28)
[2024-09-07 03:46] VITALS: O2SAT 99
[2024-09-07 09:43] VITALS: BP 118/65; TEMP 97.9
--- NOTE | 2024-09-07 12:00 | Discharge Summary ---
"Discharge Summary Admit Date: 09/05/24 Discharge Date: 09/07/24 Discharging Provider: Radha Veliz Code Status: Attempt Resuscitation Discharge Facility Name: [facility] DIAGNOSES Admission Diagnoses: 33yo with IUP 39w Discharge Diagnoses with Status of Each Condition: s/p vaginal delivery HPI History of Present Illness: 33yo with IUP 39w CONSULTS | PROCEDURES Procedures: Epidural HOSPITAL COURSE Hospital Course: 33yo admitted 09/05/24 at 39w for IOL. She was induced with misoprostol x2 doses. Treated for positive GBS. Received epidural. Pitocin started. SROM. Progressed to 10cm. Uncomplicated . Received TXA and misoprostol for increased bleeding, resolved. She has been recovering well and feels ready to go home PPD#1. Comfortable. Appropriate lochia. Ambulating. Voiding. Tolerating regular diet. and formula. Mood is good. care, preeclampsia, PPD reviewed. Follow up this week in [facility]. ALLERGIES Allergies Allergy/AdvReac Type Severity Reaction Status Date / Time blueberries Allergy Severe Anaphylaxis Uncoded 05/02/24 16:42 CHLORHEXIDINE GLUCONATE AdvReac Intermediate Hives Uncoded 05/02/24 16:42 MEDICATIONS Ambulatory Orders Medication Instructions Recorded Confirmed vitamins no.154-ferrous 1 tab PO QDAY #90 tabs 05/22/24 09/06/24 fumarate 27 mg-folic acid 1 mg tablet omeprazole 20 mg capsule,delayed 20 mg PO QDAY #30 caps 06/26/24 09/06/24 release acyclovir 400 mg tablet 400 mg PO TID 45 days #135 tabs 08/06/24 09/06/24 ferrous sulfate 325 mg (65 mg 325 mg PO QDAY #90 tabs 08/13/24 09/06/24 iron) tablet,delayed release acetaminophen 500 mg tablet 1,000 mg (2 x 500 mg) PO Q8HR 30 09/07/24 days #60 tabs docusate sodium 100 mg capsule 100 mg PO BID 7 days #14 caps 09/07/24 ibuprofen 800 mg tablet 800 mg PO Q8H 30 days #60 tabs 09/07/24 PHYSICAL EXAM AT DISCHARGE General Appearance: positive No acute distress Eyes Bilateral: positive Normal inspection Respiratory: positive No respiratory distress Abdomen: positive Non-tender Skin: positive Color nml Extremities: positive Non-tender Neurologic/Psychiatric: positive Oriented x3 LABS 09/05/24 09:50 09/05/24 10:42 FOLLOW UP Follow Up: 4d TIME SPENT Time Spent in Discharge (Minutes): 30 Discharge Plan Discharge Patient Disposition: 01 Home, Self Care Condition: Good Medically Cleared Date:: 09/07/24 Prescriptions: New ibuprofen 800 mg Tablet 800 mg PO Q8H 30 Days Qty: 60 0RF acetaminophen 500 mg Tablet 1,000 mg PO Q8HR 30 Days Qty: 60 0RF docusate sodium 100 mg Capsule 100 mg PO BID 7 Days Qty: 14 0RF Continued PNV no.154-iron fumarate-folic 27 mg iron- 1 mg tablet 1 tab PO QDAY Qty: 90 3RF omeprazole 20 mg capsule,delayed release(DR/EC) 20 mg PO QDAY Qty: 30 2RF acyclovir 400 mg tablet 400 mg PO TID 45 Days Qty: 135 0RF ferrous sulfate 325 mg (65 mg iron) tablet,delayed release (DR/EC) 325 mg PO QDAY Qty: 90 2RF Activity Restrictions: Activity as Tolerated Diet: Regular Print Language: Portuguese Patient Instructions: Vaginal After, Follow-up Care: Christiano Morales MD [Provider Admit Priv/Credential] - 1-2 Days"
--- NOTE | 2024-09-07 14:22 | Labor Flowsheet ---
Labor Flowsheet Datetime Report Generated by CPN: 09/07/2024 14:21 Datetime: 09/07/2024 09:40 VITAL SIGNS NBP Sys/Saritha/Mean (mmHg): 118 : 65 : 77 Pulse: 80 Datetime: 09/06/2024 17:04 SpO2 (%): 99 Datetime: 09/06/2024 13:06 STAGE 2 Stage 2 Comments: placenta/pit @334 per MD Datetime: 09/06/2024 13:04 Stage of : Recovery Datetime: 09/06/2024 13:00 UTERINE ACTIVITY Monitor Mode: External Frequency (min): 1.5-2 Duration (sec): 40-60 Comments: indeterminate LaborFlag: OB Triage Datetime: 09/06/2024 12:57 Contraction Comments: pushing Datetime: 09/06/2024 12:50 VAGINAL EXAM Dilatation (cm): 10.0 Effacement (%): 100 Station: 2 Exam by: gambsc Datetime: 09/06/2024 12:46 Monitor Interventions for FHR: Ultrasound Adjusted Datetime: 09/06/2024 12:45 Pattern: Normal: <= 5 Contractions in 10 Minutes ASSESSMENT A Monitor Mode: External US FHR Baseline Rate : 140 Variability: Moderate 6-25 bpm Accelerations: 10X10 Decelerations: Late; Variable Category: Category II Datetime: 09/06/2024 12:43 Patient Position/Activity: Left Extreme Datetime: 09/06/2024 12:30 FHR Baseline Changes: No Baseline Change Datetime: 09/06/2024 12:21 Pain Presence: None/Denies Datetime: 09/06/2024 12:06 Monitor Interventions for UA: [place] Adjusted Datetime: 09/06/2024 12:05 MEDICATIONS Pitocin (milliunits): Increased to @ 8 Medication Comments: Per MD Datetime: 09/06/2024 12:03 Vaginal Exam Comments: closer to 8cm dilated Datetime: 09/06/2024 12:00 Patient Care Comments: Previous mercer came out. Urethra intact and no trama seen. [place] place d by MD. Clear yellow urine draining. 10cc NS inserted into balloon. Datetime: 09/06/2024 11:54 Hygiene: Sandra Care Datetime: 09/06/2024 11:53 Membranes Ruptured Date/Time: Ruptured sometime between 0941 and 1153. Clear fluid noted on chux Datetime: 09/06/2024 10:54 Pain Assessment Comments: pt asleep Datetime: 09/06/2024 10:30 Pitocin Checklist: At Least 1 Acceleration of 15 bpm x 15 Seconds in 30 Minutes or Adequate Variabi lity; No More than 1 Late Deceleration Occurred in Past 30 Minutes; No More than 2 Variable Decelerat ions > 60 Seconds in Duration and decreasing >60 bpm in 30 minutes; No More than 5 Uterine Contractio ns in 10 Minutes for any 20 Minute Interval; Uterus Palpates Soft between Contractions Datetime: 09/06/2024 09:45 Resting Tone (Palpate): Relaxed Datetime: 09/06/2024 09:32 Temperature (C): 36.5 Datetime: 09/06/2024 09:31 Vital Sign Comments: change BP buff now on upper arm Datetime: 09/06/2024 08:37 Pain Type: Cramping Pain Location: Abdomen Datetime: 09/06/2024 08:30 Epidural Procedure: Test Dose Datetime: 09/06/2024 08:13 Epidural Positioning: Sitting Datetime: 09/06/2024 08:09 Anesthesia Comments: Epidural removed by EMPLOYEE BENEFITS ADMINISTRATOR Datetime: 09/06/2024 08:00 Antibiotics: Ampicillin IV 1 Gm Datetime: 09/06/2024 07:59 Quality: Moderate Datetime: 09/06/2024 07:35 I/O Interventions: Mercer Cath Inserted Datetime: 09/06/2024 07:15 Cervix, Consistency: Soft Datetime: 09/06/2024 07:11 PAIN Pain Scale: 10 Pain Goal: 2 Datetime: 09/06/2024 07:09 COMMUNICATION Communication: Call/Page Placed to Provider Provider Notified (Name): Panfilo Baires EMPLOYEE BENEFITS ADMINISTRATOR Communication Comments: EMPLOYEE BENEFITS ADMINISTRATOR notified that pt still having a lot of pain during ctxs with the epidu ral and has already hit her epidural JAVA SOFTWARE DEVELOPER button with no relief Datetime: 09/06/2024 07:00 PATIENT CARE Oxygen Method: Room Air Datetime: 09/06/2024 05:54 PROCEDURE TIME OUT Procedure Verify: Correct Patient Identity; Correct Side and Site are Marked; Accurate Procedure Co nsent Form; Agreement on Procedure to be Done; Correct Patient Position; Relevant Images and Results are Properly Labeled and Displayed; Addressed Need to Administer Antibiotics or Fluids for Irrigation ; Safety Precautions Based on Patient History or Medication Use ANESTHESIA Anesthesia Plans: Epidural Datetime: 09/06/2024 05:27 Pain Coping: Requesting Pain Medication or Epidural Datetime: 09/06/2024 04:30 Pain Relief Measures: Comfort Measures Comfort Measures: Hot/Cold Pack Datetime: 09/06/2024 00:13 Respirations: 20 Datetime: 09/06/2024 00:08 Cervical Ripening Agents: Cytotec @ 25 Datetime: 09/05/2024 20:57 Actions for Decelerations: Side to Side Datetime: 09/05/2024 20:08 MATERNAL ASSESSMENT Level of Consciousness: Alert Headache: Denies Breath Sounds, Left: Clear and Equal Breath Sounds, Right: Clear and Equal Nausea/Vomiting: Denies RUQ Epigastric Pain: Denies Datetime: 09/05/2024 19:54 Vaginal Bleeding: None Cervix, Position: Midposition Datetime: 09/05/2024 15:23 Temperature Route: Oral
== END 2024-09-07 14:15 | disposition home or self-care (01) | DRG 806 ==
LOC: WFO 08:22 → FBP 08:25
PROVIDERS: ADMIT Obstetrics & Gynecology; ATTEND Obstetrics & Gynecology
DX: O77.0 Labor and delivery complicated by meconium in amniotic fluid; O99.334 Smoking (tobacco) complicating childbirth; Z79.899 Other long term (current) drug therapy; F17.210 Nicotine dependence, cigarettes, uncomplicated; O98.52 Other viral diseases complicating childbirth; O99.214 Obesity complicating childbirth; O99.824 Streptococcus B carrier state complicating childbirth; E66.813 Obesity, class 3; Z3A.39 39 weeks gestation of pregnancy; Z37.0 Single live birth; B00.9 Herpesviral infection, unspecified